=== PATIENT | male | born 1965 | race African-American/Black ===

== ENCOUNTER 2019-08-08 08:50 | Inpatient (IN) | payer MEDICARE, OTHER ==
[2019-08-08] MEDS ORDERED: Heparin 10,000 UNITS/1 ML VIAL ONE (08:52)
[2019-08-08] MEDS ORDERED: Fentanyl 100 MCG/2 ML VIAL ONE (09:13)
[2019-08-08 09:18] LABS: INR-International Normal Ratio 1.1; Prothrombin Time 13.7 sec (12.0-14.7)
[2019-08-08 09:19] LABS: PTT 72.9 sec (22.9-36.1)
[2019-08-08] MEDS ORDERED: Iopamidol 370 76% 100 ML VIAL ONE (09:32)
[2019-08-08] MEDS ORDERED: Iopamidol-370 76% 500 ML 1 ML ONE (09:40)
[2019-08-08 10:22] LABS: Troponin I 0.017 ng/mL (< 0.028)
--- NOTE | 2019-08-08 10:41 | CON ---
DATE OF CONSULTATION: 08/08/2019 REASON FOR CONSULTATION: The initial diagnosis was acute myocardial infarction with severe chest pain. The patient is found to have normal coronary arteries, taken directly to the catheterization lab. HISTORY OF PRESENT ILLNESS: Mr. Lizarraga is a 54-year-old gentleman started having severe pain last night, substernal, intense. The patient was in excruciating pain, unable to lay still. He went to the emergency room in [place], had ST elevation in the anterior chest leads. The patient was taken here to the cardiac catheterization lab on the emergency basis and cardiac catheterization revealed normal coronary arteries. Speaking more to this gentleman, it does seem to be worse when he lays down, somewhat better when he sits up, his pain has improved with fentanyl. The patient was unable to give much history initially due to the severe pain. PAST MEDICAL HISTORY: 1. History of hypertension, on lisinopril and he thinks Dyazide. 2. History of rheumatoid arthritis. MEDICATIONS: Outlined above. SOCIAL HISTORY: No alcohol or tobacco. REVIEW OF SYSTEMS: He is really unable to give adequate review of systems due to the severe pain, and unable to give much history other than it was an excruciating pain. PHYSICAL EXAMINATION: GENERAL: Initially, the patient was in severe pain, diaphoretic, unable to lay still, moving down the table. He was able to lay still after I gave him 50 mg of fentanyl. VITAL SIGNS: Blood pressure is 130 systolic, pulse in the 90s. EYES: Sclerae nonicteric. MOUTH: Mucous membranes moist. NECK: Supple. No lymphadenopathy. LUNGS: Clear anteriorly and laterally. CARDIAC: I do not hear a murmur, rub, or gallop. ABDOMEN: Soft and nontender. EXTREMITIES: Warm and dry. No clubbing or cyanosis. There is no edema. Femoral pulses present. DIAGNOSTIC IMPRESSION: EKG in [place] revealed ST elevation in the anterior chest leads. Followup EKG here did reveal more of a concave up ST elevation pattern, with also some elevation more like pericarditis on the EKG here. Cardiac catheterization revealed normal coronary arteries with normal left ventricular function. CONCLUSION: 1. Severe substernal chest pain, which appears to be more likely to be a pericarditis. 2. Long history of hypertension. 3. Normal coronary arteries. The patient has received heparin. PLAN: 1. We would go ahead and do a CT of the thoracic aorta and make sure he does dissection. 2. We have given him 30 mg of Toradol IV. 3. Start colchicine 0.6 mg twice a day. We will follow with you. He will be admitted to the Hospital service or the Family Practice service. Job ID: [id number]
--- NOTE | 2019-08-08 11:24 | CT ---
CTA OF THE CHEST AND ABDOMEN UTILIZING AN AORTIC DISSECTION PROTOCOL AND 3-D REFORMATTED IMAGING INDICATION: 54-year-old male with a history of STEMI alert and cardiac catheterization. Now with new onset chest pain. COMPARISON: None FINDINGS: Aorta: No acute aortic stenosis, occlusion or aneurysmal formation demonstrated. Central pulmonary artery: No central pulmonary embolus demonstrated. Additional thorax findings: There is small pericardial effusion. There are reticular opacities within both lower lobes. Nonspecific may reflect areas of subsegmental volume loss. No pneumothorax is evident. Additional abdominal findings: There is a 1.3 cm focus of arterial enhancement involving the lateral left hepatic lobe on image 124 series 2. Similar-appearing small foci of enhancement are seen within the peripheral aspect of segment 7 and segment 6. Findings may reflect small transient hepatic attenuation differences or tiny M hemangiomas. Arterial enhancement metastatic lesions not entirely excluded but is felt to be less likely. There is excreting contrast within the kidneys from the patient's prior cardiac catheterization. Visualized pancreas, adrenal glands and spleen appear within normal limits. No free fluid or enlarged lymph nodes are evident. Osseous structures: No acute osseous abnormality. There is scattered degenerative and osteoarthritic change present. IMPRESSION: 1. No appreciable aortic stenosis, occlusion or aneurysmal formation demonstrated. 2. Small pericardial effusion. 3. Nonspecific reticular opacities within both lower lobes are most suspicious for areas of subsegmen delroy volume loss. Atypical infection cannot be entirely excluded but is felt to be less likely. Recommend continued clinical and radiographic follow-up 4. Small foci of scattered arterial enhancement in the liver may reflect small capillary-type hemangi bob or small transient hepatic attenuation differences. As a conservative measure, would recommend a follow-up CT in 6-8 weeks utilizing hemangioma protocol to document stability or resolution.
[2019-08-08] MEDS ORDERED: Senokot S 8.6-50 MG TAB PO PRN (15:57)
[2019-08-08] MEDS ORDERED: Acetaminophen 325 MG TAB PO PRN (15:57)
[2019-08-08] MEDS ORDERED: Calcium Carbonate 500 MG ChewTAB PO PRN (15:57)
[2019-08-08] MEDS ORDERED: Bisacodyl 10 MG SUPP PR PRN (15:57)
[2019-08-08] MEDS ORDERED: Guaifenesin DM 100-10/5 ML UDCUP PO PRN (15:57)
[2019-08-08] MEDS ORDERED: HYDROcodone/Acetaminophen 5/325 mg Tablet ONE (16:11)
[2019-08-08] MEDS: HYDROcodone/Acetaminophen 5/325 mg Tablet PO PRN (16:16)
[2019-08-08] MEDS ORDERED: Colchicine 0.6 MG TAB PO SCH (17:00)
[2019-08-08 17:28] LABS: Troponin I 0.014 ng/mL (< 0.028)
--- NOTE | 2019-08-08 18:18 | HP ---
REASON FOR ADMISSION: Pericarditis. HISTORY OF PRESENTING ILLNESS: The patient gives history of having retrosternal pain with epigastric pain yesterday evening. He initially thought it was related to the food he ate. This progressively got worse this morning. On arrival at [facility], the patient was found to have had ST elevation changes. A STEMI activation was done, and the patient was brought here. He has had coronary angiogram done which has not revealed any flow-limiting disease. He has diffuse ST-T wave changes, likely from the pericarditis. Currently, he is not diaphoretic. He has no cough or expectoration. No fever. He states he is not exposed to coronavirus. No palpitations, PND, or orthopnea at present. 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 He states his father and a brother also have similar findings. There is no associated syndrome as far as he knows. Hypertension, history of rheumatoid arthritis, scoliosis. CURRENT MEDICATIONS: 1. Lisinopril 10 mg daily. 2. Hydroxychloroquine 200 mg twice daily. 3. Momence p.r.n. for pain for his rheumatoid arthritis. ALLERGIES: NO KNOWN DRUG ALLERGIES. PERSONAL HISTORY: Does not abuse alcohol or drugs. Has quit smoking more than 16 years back. FAMILY HISTORY: Father in his 90s. Mother in her 70s. The patient's has history of Tayla disease. Code status is full. Power of securities attorney is his . REVIEW OF SYSTEMS: CONSTITUTIONAL: Negative for weight loss or gain, ability to conduct usual activities. SKIN: Negative for rash, itching. EYES: Negative for double vision, pain. ENT/MOUTH: Negative for nose bleeding, neck stiffness, pain, tenderness. CARDIOVASCULAR: Negative for palpitations, dyspnea on exertion, orthopnea. RESPIRATORY: Negative for shortness of breath, wheezing, cough, hemoptysis, fever or night sweats. GASTROINTESTINAL: Negative for poor appetite, abdominal pain, heartburn, nausea, vomiting, constipation, or diarrhea. GENITOURINARY: Negative for urgency, frequency, dysuria, nocturia. MUSCULOSKELETAL: Negative for pain, swelling. NEUROLOGIC/PSYCHIATRIC: Negative for anxiety, depression. ALLERGY/IMMUNOLOGIC: Negative for skin rash, bleeding tendency. PHYSICAL EXAMINATION: GENERAL: The patient is a 54-year-old male who is currently not in any acute distress. VITAL SIGNS: Blood pressure 116/50, pulse 78 per minute, respiratory rate 20 per minute, temperature 97.7 degrees Fahrenheit, saturating 100% on room air. NECK: Supple. No elevated JVD. HEENT: Eyes; extraocular muscles intact. Pupils reacting to light. Oral cavity; mucous membranes are moist. No exudates or congestion. CARDIOVASCULAR: S1 and S2 heard. Regular rhythm. RESPIRATORY: Air entry 1+ bilateral. No rales or rhonchi. ABDOMEN: Soft. Bowel sounds heard. No tenderness, rigidity, or guarding. EXTREMITIES: No peripheral edema or calf tenderness. The patient has congenital deformities of all his fingers and toes. VASCULAR: Peripheral pulses 1+ bilateral. No ischemic ulcerations or gangrene. CENTRAL NERVOUS SYSTEM: No gross focal motor deficits noted. The patient is alert, awake, and oriented well. PSYCHIATRIC: The patient's mood is euthymic. No hallucinations or delusions. LABORATORY DATA: EKG done here shows normal sinus rhythm at 85 beats per minute. There are diffuse ST-T wave changes with elevation seen in lead 1, aVL, V2, V3. CT dissection protocol done shows no evidence of aortic stenosis or occlusion or aneurysm formation. Small pericardial effusion is seen. Nonspecific reticular opacities in both lower lobes suspicious for subsegmental volume loss. White count of 13, hemoglobin and hematocrit 15 and 49, platelet count 223 with 90% neutrophils, 1% bands, 7% lymphocytes. PT, INR, and PTT within normal limits. On arrival, BUN 10, creatinine 0.8. Troponin x4 is negative. Albumin is 4.1. LFTs are within normal limits. BNP 13. CLINICAL IMPRESSION AND PLAN: The patient will be placed under observation on telemetry for likely acute pericarditis. He has had coronary angiogram done by Dr. Kasper this morning, which did not reveal any flow-limiting disease. He has been placed on colchicine and will continue the same. We will also place him on small dose of aspirin and Lipitor along with Protonix. We will continue his home dose of Plaquenil, Momence, and lisinopril 10 mg daily. Echo with 2D Doppler for left ventricular function and wall motion will be obtained and to rule out pericardial effusion, which was not very significant on the CT dissection protocol. We will also obtain a lipid profile in the morning. COVID-19 PCR has been obtained in the ER, and we will follow up on the results. He is currently not requiring any oxygen. Job ID: [id number]
[2019-08-08 19:14] VITALS: BMI 29.9
[2019-08-08] MEDS: Morphine 2 MG/ML SYRINGE SLOW IVP PRN (19:29)
[2019-08-08] MEDS ORDERED: Atorvastatin Calcium 40 MG TAB PO SCH (21:00)
[2019-08-08] MEDS: Ketorolac Tromethamine 30 MG/ML VIAL IVP SCH (22:03)
[2019-08-08] MEDS: Hydroxychloroquine Sulfate 200 MG TAB PO SCH (22:04)
[2019-08-08] MEDS ORDERED: Temazepam 15 MG CAP PO PRN (23:25)
[2019-08-09] MEDS: Morphine 2 MG/ML SYRINGE SLOW IVP PRN (00:29)
[2019-08-09] MEDS: Ketorolac Tromethamine 30 MG/ML VIAL IVP SCH ×2 (04:22→07:46)
[2019-08-09 04:55] LABS: #Basophils 0.1 thou/uL (0.0-0.2); #Monocytes 1.7 thou/uL (0.11-0.59); #Neutrophils 10.4 thou/uL (1.40-6.50); %Basophils 0.4 % (0.0-1.0); %Eosinophils 0.3 % (0.0-10.0); %Lymphocytes 14.1 % (21.0-51.0); %Monocytes 11.9 % (0.0-10.0); %Neutrophils 73.3 % (42.0-75.0); Hemoglobin 13.6 g/dL (14.0-18.0); Mean Corpuscular HGB CONC 32.3 g/dL (32.0-36.0); Mean Corpuscular Hemoglobin 27.8 pg (27.0-31.0); Mean Corpuscular Volume 86.2 fL (78.0-98.0); Platelet Count 189 thou/uL (130-400); RBC Distribution Width 12.4 % (11.5-14.5); White Blood Cell (WBC) Count 14.2 thou/uL (4.8-10.8)
[2019-08-09 05:23] LABS: Anion Gap 13 mmol/L (10-20); BUN (Urea Nitrogen) 17 mg/dL (8.4-25.7); Calc. Creatinine Clearance 153 mL/min (70-130); Calcium 8.7 mg/dL (7.8-10.44); Carbon Dioxide 26 mmol/L (22-29); Cardiac Risk 2.6 (Less than 4.5); Chloride 98 mmol/L (98-107); Cholesterol 131 mg/dl (< 200 Desired); Estimated GFR-MDRD Greater than 90; Glucose 117 mg/dL (70-105); HDL Cholesterol 51 mg/dL (>60 Neg Risk); LDL Cholesterol, Calculated 64 mg/dL; Potassium 3.4 mmol/L (3.5-5.1); Sodium 134 mmol/L (136-145); Triglycerides 81 mg/dL (Less than 150)
[2019-08-09] MEDS: Hydroxychloroquine Sulfate 200 MG TAB PO SCH (07:46)
[2019-08-09] MEDS ORDERED: Aspirin Chewable 81 MG TAB PO SCH (09:00)
[2019-08-09] MEDS ORDERED: Enoxaparin Sodium 40 MG/0.4 ML SYRINGE SC SCH (09:00)
[2019-08-09] MEDS ORDERED: Colchicine 0.6 MG TAB PO SCH (09:00)
[2019-08-09] MEDS ORDERED: Lisinopril 10 MG TAB PO SCH (09:00)
[2019-08-09] MEDS: HYDROcodone/Acetaminophen 5/325 mg Tablet PO PRN (12:15)
[2019-08-09 12:26] LABS: SARS-CoV-2 MS2 Positive; SARS-CoV-2 N Gene Negative; SARS-CoV-2 S Gene Negative; SARS-CoV-2 orf1ab Negative
[2019-08-09] MEDS ORDERED: Potassium Chloride 20 MEQ TAB PO SCH (13:30)
[2019-08-09] MEDS ORDERED: Etodolac ER 400 mg Tablet PO SCH (14:00)
[2019-08-09 16:55] VITALS: BP 142/78; TEMP 98.5
--- NOTE | 2019-08-09 17:51 | PRG ---
DATE OF SERVICE: 08/09/2019 SUBJECTIVE: Mr. Lizarraga is feeling dramatically better. No complaints. OBJECTIVE: VITAL SIGNS: His blood pressure is 124/64, pulse 80 and it is regular. LUNGS: Clear. CARDIAC: Normal S1, normal S2. ABDOMEN: Soft and nontender. EXTREMITIES: There is no edema. IMAGING: CT scan revealed only very small pericardial effusion. ASSESSMENT: 1. Pericarditis, improved. 2. Rheumatoid arthritis. PLAN: 1. Colchicine 0.6 mg twice a day for at least three months. 2. Lodine long-acting 400 mg a day for 2 weeks. 3. Okay to me to be discharged home. We can do an outpatient echocardiogram. There is no evidence of any tamponade. There is very small effusion seen on CT scanning. Job ID: [id number]
[2019-08-09] MEDS ORDERED: Prevnar 13-Val Conj/PF 0.5 ML SYRINGE IM ONE (21:00)
== END 2019-08-09 17:49 | disposition home or self-care (01) | DRG 287 ==
LOC: ERS 08:50 → CCL 09:08 → ERS 09:08 → 2SW 09:10 → ERHOLD 13:33 → 2SW 19:10
PROVIDERS: ADMIT Internal Medicine; ATTEND Internal Medicine
PROC: 4A023N7 Measurement of Cardiac Sampling and Pressure, Left Heart, Percutaneous Approach (ICD-10-PCS; principal; 2019-08-08)
PROC: B2151ZZ Fluoroscopy of Left Heart using Low Osmolar Contrast (ICD-10-PCS; 2019-08-08)
PROC: B2111ZZ Fluoroscopy of Multiple Coronary Arteries using Low Osmolar Contrast (ICD-10-PCS; 2019-08-08)
DX: I30.9 Acute pericarditis, unspecified (principal); Z20.828 Contact with and (suspected) exposure to other viral communicable diseases; I25.10 Atherosclerotic heart disease of native coronary artery without angina pectoris; I10 Essential (primary) hypertension; M06.9 Rheumatoid arthritis, unspecified; M41.9 Scoliosis, unspecified; Z87.891 Personal history of nicotine dependence; Z79.899 Other long term (current) drug therapy
CPT/HCPCS: 36415; 71275; 72191; 74175; 76942; 80048; 80061; 85025; 85347; 86850; 86900; 86901; 87635; 93005; 93306; 93458; 94760; J1644; J1650; J1885; J2270; J3010; Q9967; U0003

== ENCOUNTER 2019-08-18 00:10 | Inpatient (IN) | payer MEDICARE ==
[2019-08-18 01:51] LABS: Troponin I 0.022 ng/mL (< 0.028)
[2019-08-18] MEDS ORDERED: Morphine 2 MG/ML SYRINGE ONE (03:11)
[2019-08-18] MEDS ORDERED: Diltiazem HCl 125 MG, Admixture Fee 1 EACH in Sodium Chloride 0.9% 100 ML IVPB SCH (05:00)
[2019-08-18] MEDS ORDERED: Lorazepam 1 MG TAB ONE (05:20)
[2019-08-18] MEDS ORDERED: Ondansetron PF 4 MG/2 ML Vial ONE (08:06)
[2019-08-18] MEDS ORDERED: Ondansetron PF 4 MG/2 ML Vial IVP SCH (08:15)
[2019-08-18] MEDS ORDERED: Nitroglycerin 0.4 MG TAB (25 Tab Bottle) PO PRN (10:35)
[2019-08-18] MEDS ORDERED: Temazepam 15 MG CAP PO PRN (10:44)
[2019-08-18] MEDS ORDERED: Metoprolol Tartrate 25 MG TAB PO SCH ×2 (10:45→21:00)
[2019-08-18 10:55] VITALS: BMI 31.4
[2019-08-18] MEDS ORDERED: Enoxaparin Sodium 30 MG/0.3 ML SYRINGE SC SCH (11:00)
[2019-08-18] MEDS ORDERED: Enoxaparin Sodium 100 MG/ML SYRINGE SC SCH (11:00)
[2019-08-18] MEDS ORDERED: Potassium Chloride 20 MEQ TAB ONE (11:16)
[2019-08-18] MEDS ORDERED: Enoxaparin Sodium 30 MG/0.3 ML SYRINGE ONE (11:16)
[2019-08-18] MEDS ORDERED: Enoxaparin Sodium 100 MG/ML SYRINGE ONE (11:16)
[2019-08-18] MEDS ORDERED: Metoprolol Tartrate 25 MG TAB ONE (11:16)
[2019-08-18] MEDS ORDERED: HYDROcodone/Acetaminophen 10/325 mg Tablet ONE (11:16)
[2019-08-18] MEDS: Potassium Chloride 20 MEQ TAB PO SCH ×2 (11:24→17:26)
[2019-08-18] MEDS: HYDROcodone/Acetaminophen 10/325 mg Tablet PO PRN (11:24)
[2019-08-18 11:35] LABS: INR-International Normal Ratio 1.2; PTT 30.1 sec (22.9-36.1); Prothrombin Time 15.5 sec (12.0-14.7)
[2019-08-18 11:59] LABS: Anion Gap 14 mmol/L (10-20); BUN (Urea Nitrogen) 18 mg/dL (8.4-25.7); Calc. Creatinine Clearance 135 mL/min (70-130); Calcium 7.9 mg/dL (7.8-10.44); Carbon Dioxide 25 mmol/L (22-29); Chloride 92 mmol/L (98-107); Estimated GFR-MDRD 79; Glucose 166 mg/dL (70-105); Magnesium 2.3 mg/dL (1.6-2.6); Potassium 3.6 mmol/L (3.5-5.1); Sodium 127 mmol/L (136-145)
--- NOTE | 2019-08-18 16:17 | PDOC.HHP ---
Hospitalist HPI - History of Present Illness Heart racing History of Present Illness: Recent admission for CP with EKG changes. Negative cath. Dx'd with pericarditis. Started on Colchicine and discharged. on 08/10. His chest pain resolved. On 08/15 he started having problems with some nausea and vomiting. When rushing to get to the BR he noted tachycardia. He was unable to walk more than 20 feet without having BAJWA. After the third episode of the heart racing he came to the ED. Denies abdominal pain. ED Course: Noted to be in afib with RVR in the ED. Started on Cardizem gtt. Better rate control, but still in fib. Anticoagulation given. Hospitalist ROS - Review of Systems Constitutional: denies: fever, chills Cardiovascular: reports: palpitations. denies: chest pain Gastrointestinal: reports: nausea, vomiting, abdominal pain. denies: diarrhea, constipation All other systems reviewed; all pertinent +/- noted in HPI/Subj - Medication Medications: Active Medications Generic Name Dose Route Start Last Admin Trade Name Freq PRN Reason Stop Dose Admin Hydrocodone Bitart/Acetaminophen 1 tab 08/18/19 10:35 08/18/19 11:24 [place] 10/325 PO 1 tab Q6H PRN Administration Mild-Moderate Pain (1-5) Potassium Chloride 20 meq 08/18/19 12:00 08/18/19 11:24 K-Dur PO 20 meq TID-WM [facility] Administration Plaquenil 200 mg po bid Colchicine 0.6 mg po bid Diazide 37.5-25 po qday Lisinopril 10 mg po q day Temazepam 15 mg po q day [place] prn Vitamin D3 Hospitalist History - Past Medical History Cardiac: reports: HTN, Other (Pericarditis) Musculoskeletal: reports: Other (scoliosis) Rheumatologic: reports: Rheumatoid arthritis - Past Surgical History Past Surgical History: reports: no pertinent history - Family History Family History: reports: no pertinent history - Social History Smoking Status: Former smoker Alcohol: reports: None Drugs: reports: none Living Situation: With Family Other Social History: Full code. would be his surrogate if needed. - Exam General Appearance: NAD, awake alert Neck: supple, symmetric, no JVD, no thyromegaly, no lymphadenopathy, no carotid bruit Heart: no murmur, no gallops, no rubs, irregular Respiratory: CTAB, no wheezes, no rales, no ronchi, normal chest expansion, no tachypnea, normal percussion Gastrointestinal: soft, non-tender, non-distended, normal bowel sounds, no palpable masses, no hepatomegaly, no splenomegaly, no bruit Extremities: no cyanosis, no clubbing, no edema Skin: normal turgor, no lesions, no rashes Neurological: no focal deficits Musculoskeletal: normal tone, normal strength, no muscle wasting Musculoskeletal - other findings: RA changes in fingers Psychiatric: normal affect, normal behavior, A&O x 3 Hospitalist Results - Labs Result Diagrams: 08/18/19 10:57 Lab results: Sodium 127 mmol/L (136-145) L 08/18/19 10:57 Potassium 3.6 mmol/L (3.5-5.1) 08/18/19 10:57 Chloride 92 mmol/L (98-107) L 08/18/19 10:57 Carbon Dioxide 25 mmol/L (22-29) 08/18/19 10:57 BUN 18 mg/dL (8.4-25.7) 08/18/19 10:57 Creatinine 1.16 mg/dL (0.7-1.3) 08/18/19 10:57 Glucose 166 mg/dL (70-105) H 08/18/19 10:57 Calcium 7.9 mg/dL (7.8-10.44) 08/18/19 10:57 Troponin I 0.030 ng/mL (< 0.028) H 08/18/19 04:30 - EKG Interpretation EKG: Afib with RVR Hospitalist H&P A/P - Problem (1) Atrial fibrillation with rapid ventricular response Code(s): I48.91 - UNSPECIFIED ATRIAL FIBRILLATION Status: Acute (2) Hyponatremia Code(s): E87.1 - HYPO-OSMOLALITY AND HYPONATREMIA Status: Acute (3) Pericarditis Code(s): I31.9 - DISEASE OF PERICARDIUM, UNSPECIFIED Status: Acute (4) Nausea & vomiting Code(s): R11.2 - NAUSEA WITH VOMITING, UNSPECIFIED Status: Acute (5) HTN (hypertension) Code(s): I10 - ESSENTIAL (PRIMARY) HYPERTENSION Status: Acute - Plan Plan: Atrial Fibrillation with RVR: New onset. Recent echo. Cardizem gtt with good rate control. Lovenox until Cards decides on cardioversion plan. Hyponatremia: Likely due to N/V. IVF. Recheck in am. N/V: Likely side-effect of recently added colchicine. Hold for now. Discussed with Dr. Kasper. He will likely reduce the dose. Pericarditis: Recent CP with negative cath, but with EKG changes. Treated with colchicne, but causing some GI SE's. RA: Continue home meds. HTN: Continue Lisinopril. Hold Dyazide due to hyponatremia.
[2019-08-18] MEDS: Sodium Chloride 0.9% 1,000 ML IV SCH (17:26)
[2019-08-18] MEDS: Ketorolac Tromethamine 30 MG/ML VIAL IVP SCH (17:27)
[2019-08-18 18:21] LABS: Anion Gap 14 mmol/L (10-20); BUN (Urea Nitrogen) 20 mg/dL (8.4-25.7); Calc. Creatinine Clearance 131 mL/min (70-130); Calcium 7.9 mg/dL (7.8-10.44); Carbon Dioxide 25 mmol/L (22-29); Chloride 92 mmol/L (98-107); Estimated GFR-MDRD 76; Glucose 140 mg/dL (70-105); Sodium 127 mmol/L (136-145)
[2019-08-18 19:11] LABS: Bacteria/HPF None Seen HPF (None Seen); Bilirubin Negative (Negative); Blood, Urine Negative (Negative); Clarity Clear (Clear); Glucose, Urine (Dipstick) Normal (Negative); Ketone, Urine Negative (Negative); Leukocyte Negative Leu/uL (Negative); Nitrite Negative (Negative); Protein, Urine (Dipstick) 30 mg/dL (Neg-Trace); RBC/HPF 0-3 HPF (0-3); Specific Gravity, Urine 1.019 (1.002-1.036); Squamous Epithelial None Seen HPF (0-3); Urobilinogen 3 mg/dL (Less than 2); WBC/HPF 0-3 HPF (0-3)
[2019-08-18 19:13] LABS: Urine Culture Reflex No No
[2019-08-18] MEDS: Enoxaparin Sodium 30 MG/0.3 ML SYRINGE SC SCH ×2 (20:14→20:27)
[2019-08-18] MEDS: Enoxaparin Sodium 100 MG/ML SYRINGE SC SCH ×2 (20:14→20:28)
[2019-08-18] MEDS: Metoprolol Tartrate 25 MG TAB PO SCH (20:16)
[2019-08-18] MEDS: HYDROcodone/Acetaminophen 10/325 mg Tablet PO SCH (20:16)
[2019-08-18] MEDS: Hydroxychloroquine Sulfate 200 MG TAB PO SCH (20:17)
[2019-08-18] MEDS ORDERED: Enoxaparin Sodium 120 MG/0.8 ML SYRINGE SC SCH (21:00)
--- NOTE | 2019-08-18 22:09 | CON ---
DATE OF CONSULTATION: 08/18/2019 REASON FOR CONSULTATION: Atrial fibrillation with a rapid rate, recent pericarditis. HISTORY OF PRESENT ILLNESS: Mr. Lizarraga is a 54-year-old gentleman, who came to the hospital recently with severe chest pain. He was initially classified as a possible acute myocardial infarction. He was taken to cardiac catheterization lab, where he was found to have normal coronary arteries, but he did have a diagnosis of pericarditis. He was found to have a small hemodynamically insignificant pericardial effusion. He went home on colchicine, but he had a lot of gastrointestinal problems, did want to eat, felt nauseated, did not vomit. In the last few days, he just has not been feeling well, finally came to the emergency room. He has been atrial fibrillation with a rapid rate. PAST MEDICAL HISTORY: He has a history of rheumatoid arthritis. MEDICATIONS: He is on hydroxychloroquine medicines, please see the nurse's notes included colchicine and hydroxychloroquine and given potassium here and started on beta blockers. SOCIAL HISTORY: No alcohol or tobacco. REVIEW OF SYSTEMS: As outlined above. VISION: No changes. HEARING: No changes. PULMONARY: No cough or wheezing. CARDIAC: No chest pain, usually but he has some pains in various locations in his chest, but he says it is hard to tell from his usual arthritis pain. GASTROINTESTINAL: As outlined above. SKIN: No rashes. NEUROLOGIC: No unilateral weakness or numbness. PSYCHIATRIC: No unusual depression or anxiety. HEMATOLOGIC: No unusual bruising. GENITOURINARY: No burning with urination. PHYSICAL EXAMINATION: GENERAL: This is a pleasant gentleman, very tall. VITAL SIGNS: 6 feet 8 inches tall and 290 pounds. HEENT: Eyes, sclerae nonicteric. Mouth, mucous membranes moist. NECK: Supple. No lymphadenopathy. LUNGS: Clear. No wheezing. CARDIAC: Normal S1 and normal S2. There is no murmur, rub, or gallop. It is irregularly irregular; however. ABDOMEN: Soft and nontender. EXTREMITIES: Warm and dry. No clubbing. No cyanosis or edema. PERTINENT LABORATORY DATA: Troponin 0.030. Sodium is 127. The patient was on triamterene. EKG reveals atrial fibrillation with a rapid rate. Still has some ST elevation in V3 and V4, probably due to pericarditis. ASSESSMENT: 1. Recent pericarditis. 2. Atrial fibrillation with a rapid rate. 3. Gastrointestinal side effects on colchicine. PLAN: 1. Hold colchicine. 2. Change to intravenous anti-inflammatories for now. 3. Increase beta blockers. 4. We will add flecainide tomorrow if he is still in fibrillation. Job ID: [id number]
[2019-08-19] MEDS: Ketorolac Tromethamine 30 MG/ML VIAL IVP SCH ×2 (00:08→05:51)
[2019-08-19] MEDS: Temazepam 15 MG CAP PO PRN (00:11)
[2019-08-19 04:39] LABS: Anion Gap 12 mmol/L (10-20); BUN (Urea Nitrogen) 28 mg/dL (8.4-25.7); Calc. Creatinine Clearance 108 mL/min (70-130); Calcium 7.4 mg/dL (7.8-10.44); Carbon Dioxide 23 mmol/L (22-29); Chloride 92 mmol/L (98-107); Estimated GFR-MDRD 61; Glucose 121 mg/dL (70-105); Potassium 4.3 mmol/L (3.5-5.1); Sodium 123 mmol/L (136-145)
[2019-08-19] MEDS: Sodium Chloride 0.9% 1,000 ML IV SCH (05:52)
--- NOTE | 2019-08-19 07:35 | PDOC.HOSPP ---
- Subjective Encounter Date: 08/19/19 Encounter Time: 14:00 Subjective: Patient seen and examined for Afib with RVR. Cardizem drip dced last night. No CP. No new complaints. No overnight events - Objective Vital Signs & Weight: Vital Signs (12 hours) Temp Pulse Resp BP Pulse Ox 08/19/19 07:17 98.1 F 18 113/70 99 08/19/19 03:55 79 114/66 08/19/19 03:25 97.7 F 55 L 18 103/66 95 08/18/19 23:00 107/54 L Weight Weight 293 lb 3.2 oz I&O: 08/18/19 08/19/19 08/20/19 06:59 06:59 06:59 Intake Total 1100 Balance 1100 Result Diagrams: 08/19/19 14:07 EKG Reviewed by me: Yes (Tele Afib) Hospitalist ROS - Review of Systems Respiratory: denies: cough, dry, shortness of breath, hemoptysis, SOB with excertion, pleuritic pain, sputum, wheezing, other Cardiovascular: denies: chest pain, palpitations, orthopnea, paroxysmal noc. dyspnea, edema, light headedness, other - Medication Medications: Active Medications Generic Name Dose Route Start Last Admin Trade Name Freq PRN Reason Stop Dose Admin Hydrocodone Bitart/Acetaminophen 1 tab 08/18/19 10:35 08/18/19 11:24 [place] 10/325 PO 1 tab Q6H PRN Administration Mild-Moderate Pain (1-5) Hydrocodone Bitart/Acetaminophen 1 tab 08/18/19 21:00 08/18/19 20:16 [place] 10/325 PO 1 tab BID [facility] Administration Enoxaparin Sodium 100 mg 08/18/19 21:00 08/18/19 20:28 Lovenox SC 100 mg 0900,2100 [facility] Administration Enoxaparin Sodium 30 mg 08/18/19 21:00 08/18/19 20:27 Lovenox SC 30 mg 0900,2100 [facility] Administration Hydroxychloroquine Sulfate 200 mg 08/18/19 21:00 08/18/19 20:17 Plaquenil PO 200 mg BID [facility] Administration Ketorolac Tromethamine 30 mg 08/18/19 18:00 08/19/19 05:51 Toradol IVP 07/14/20 18:01 30 mg Q6HR [facility] Administration Metoprolol Tartrate 50 mg 08/18/19 21:00 08/18/19 20:16 Lopressor PO 50 mg BID [facility] Administration Temazepam 15 mg 08/18/19 10:44 08/19/19 00:08 Restoril PO 15 mg HS PRN Administration Insomnia Temazepam 15 mg 08/18/19 16:14 08/19/19 00:11 Restoril PO 15 mg HS PRN Administration Insomnia - Exam General Appearance: NAD Neck: supple, no JVD Heart: no gallops, irregular Respiratory: no wheezes, no ronchi Gastrointestinal: soft, non-tender, normal bowel sounds Extremities: no cyanosis Hosp A/P - Plan DVT proph w/lovenox, DVT proph w/SCDs Atrial Fibrillation with RVR -off Cardizem drip -on full dose Lovenox Hyponatremia Hyponatremia with PAULA on CKD 2 -prob due to SIADH with dehydration N/V -Prob due to Colchicine - on hold Recent Acute Pericarditis -unable to tolerate Colchicine RA HTN Obesity BMI 31.4 PLAN: Hold Lisinopri/HCTZ Add fluid rest DC IVF Hold Toradol due to PAULA. Recheck BMP later today AM labs
[2019-08-19] MEDS: Metoprolol Tartrate 25 MG TAB PO SCH (08:23)
[2019-08-19] MEDS: Enoxaparin Sodium 30 MG/0.3 ML SYRINGE SC SCH ×2 (08:23→20:40)
[2019-08-19] MEDS: HYDROcodone/Acetaminophen 10/325 mg Tablet PO SCH ×2 (08:23→20:40)
[2019-08-19] MEDS: Enoxaparin Sodium 100 MG/ML SYRINGE SC SCH ×2 (08:23→20:40)
[2019-08-19] MEDS: Hydroxychloroquine Sulfate 200 MG TAB PO SCH ×2 (08:30→20:39)
[2019-08-19] MEDS ORDERED: Lisinopril 10 MG TAB PO SCH (09:00)
--- NOTE | 2019-08-19 12:18 | CON ---
DATE OF CONSULTATION: 08/19/2019 SERVICE: Nephrology. REASON FOR CONSULTATION: Acute kidney injury and hyponatremia. REQUESTING PHYSICIAN: Dr. Kenneth Cox. HISTORY OF PRESENT ILLNESS: A 54-year-old male patient with known history of rheumatoid arthritis, who was recently discharged from this hospital after diagnosis and treatment of pericarditis, was readmitted on August 18, 2019 due to worsening chest pain as well as shortness of breath and tachyarrhythmia. The patient had presented to [facility] due to tachyarrhythmia, worsening chest pain and shortness of breath, and was found to be in atrial fibrillation with rapid ventricular response. He was treated with Cardizem IV push, which resulted in hypotension and was subsequently resuscitated with 2 L of normal saline. He was subsequently also started on Cardizem infusion. On presentation to the [place] [facility], the patient was found to have elevated creatinine of 1.57, which is relatively higher than recent baseline of 0.8 to 1.0. With IV resuscitation, renal function improved to a creatinine of 1.16. Due to pericarditis and chest pain as well as nausea and poor oral intake, which was felt to be due to GI adverse reaction to colchicine. The patient was started on ketorolac with first dose being last night and second dose earlier this morning. On evaluation today, the patient was found to have acute elevation in creatinine of 1.4. Note also that the patient with a normal plasma sodium on recent hospitalization, was noted to have sodium of 129 on August 16. This trended further down to 123 this morning. Of note, the patient was evaluated yesterday with urine and plasma osmolality, which are suggestive of SIADH. The patient reported that appetite is better today and he is able to keep food down. He, however, reported persistent nausea and vomiting since commencement of colchicine. Chest pain has improved. The patient denied fever or edema. PAST MEDICAL HISTORY: 1. Hypertension. 2. Scoliosis. 3. Rheumatoid arthritis. PAST SURGICAL HISTORY: Recent cardiac angiogram. FAMILY HISTORY: Significant for hypertension and diabetes in both parents. SOCIAL HISTORY: The patient lives with family. He is a former smoker. Denied alcohol or recreational drug use. ALLERGIES: NO KNOWN DRUG ALLERGIES REPORTED. PRIOR TO HOSPITAL MEDICATIONS: 1. Vitamin D 50,000 units every 7 days. 2. Hydrocodone/acetaminophen 10/325 one tablet p.o. b.i.d. p.r.n. 3. Hydroxychloroquine 200 mg p.o. b.i.d. 4. Lisinopril 10 mg p.o. daily. 5. Temazepam 15 mg p.o. daily at bedtime p.r.n. for insomnia. 6. Triamterene/hydrochlorothiazide one tablet p.o. b.i.d. 7. Colchicine 0.6 mg p.o. b.i.d. REVIEW OF SYSTEMS: A 12-point review of system performed was negative other than pertinent positives and negatives included in the history of present illness. PHYSICAL EXAMINATION: VITAL SIGNS: Temperature 98.1, pulse 99, respiratory rate 18, SpO2 of 99% on room air, and blood pressure is 113/70. I and O in the last 24 hours showed total intake of 1100. Output was not measured. GENERAL: Comfortable male patient, in no obvious distress. Afebrile. Anicteric. Acyanotic. HEENT: Normocephalic and atraumatic. Oral mucosa is moist. NECK: Supple with no JVD. CARDIOVASCULAR: Irregular rhythm and rate with mild tachycardia. No obvious murmur appreciated. RESPIRATORY: Fair air entry bilaterally with no obvious crackle or rhonchi or use of accessory muscles. GI: Full, soft, nontender, and nondistended with normal bowel sounds. MUSCULOSKELETAL: Extremities, mild scoliosis noted. Deformity of the hands including trigger and deviations with some fixed flexion deformities noted. Otherwise, no edema or erythema. CLINICAL PHARMACY COORDINATOR: Conscious, alert, and oriented x3 with appropriate mental status. Cranial nerves 2 through 12 are grossly intact. DIAGNOSTIC DATA: BMP today showed sodium 123, potassium 4.3, chloride 92, CO2 of 23, BUN 28, creatinine 1.46, glucose 121, and calcium 7.4. Note that the patient had normal plasma sodium recently. Serum osmolality on August 17 was 273 while urine osmolality was 517. ASSESSMENT: 1. Hyponatremia: The patient looked clinically euvolemic. Elevated urine osmolality in the face of hypo-osmolality is consistent with syndrome of inappropriate antidiuretic hormone secretion. The patient also was on thiazide diuretic prior to hospitalization and also reported intractable nausea and some dry heaving since starting colchicine. Also, sodium level drops acutely with normal saline therapy suggestive of syndrome of inappropriate antidiuretic hormone secretion. 2. Presumed syndrome of inappropriate antidiuretic hormone secretion. 3. Acute kidney injury: The patient had normal creatinine ranging from 0.8 to 1.0 even on recent hospitalization. He reported taking Aleve on August 16 prior to presentation to the ED, where he was found to have creatinine of 1.57. Creatinine did trend down yesterday to 1.2, but was starting to go up since commencement of ketorolac. Acute kidney injury is due to hemodynamic factors related to NSAID use. The patient also was on thiazide diuretic as well as lisinopril. 4. Hypertension: Blood pressure currently is well controlled if not soft. 5. Atrial fibrillation with rapid ventricular response. 6. Exertional dyspnea. PLAN: 1. We will discontinue ketorolac for now. 2. We will also get urine electrolytes as well as repeat urinalysis. 3. We will start fluid restriction at 1200 per 24 hours. 4. We will avoid hypertonic solution and then isotonic solution as this will worsen plasma sodium level. 5. We will start the patient on salt tablets to improve sodium levels. 6. Further treatment to follow depending on hospital course. Many thanks for involving us in the care of this patient. We will follow along with you. Job ID: [id number]
[2019-08-19 12:19] LABS: Bacteria/HPF None Seen HPF (None Seen); Bilirubin Negative (Negative); Blood, Urine Negative (Negative); Clarity Clear (Clear); Glucose, Urine (Dipstick) Normal (Negative); Ketone, Urine Negative (Negative); Leukocyte Negative Leu/uL (Negative); Nitrite Negative (Negative); Protein, Urine (Dipstick) 30 mg/dL (Neg-Trace); RBC/HPF 0-3 HPF (0-3); Squamous Epithelial 0-3 HPF (0-3); Urobilinogen 3 mg/dL (Less than 2)
[2019-08-19 12:20] LABS: Urine Culture Reflex Yes Yes
[2019-08-19 12:28] LABS: Creatinine, Urine 219.85 mg/dL (63-166); Protein, Urine Random Quant 37 mg/dL (1-14); Sodium, Urine Less than 20 mmol/L (Not Available); Urea Nitrogen, Random Urine 1018 mg/dl
[2019-08-19 14:27] LABS: Anion Gap 18 mmol/L (10-20); BUN (Urea Nitrogen) 31 mg/dL (8.4-25.7); Calc. Creatinine Clearance 126 mL/min (70-130); Calcium 7.7 mg/dL (7.8-10.44); Carbon Dioxide 15 mmol/L (22-29); Chloride 96 mmol/L (98-107); Estimated GFR-MDRD 73; Glucose 123 mg/dL (70-105); Potassium 4.9 mmol/L (3.5-5.1); Sodium 124 mmol/L (136-145)
[2019-08-19] MEDS: Sodium Chloride 1 GM TAB PO SCH ×2 (14:32→20:48)
--- NOTE | 2019-08-19 15:12 | PRG ---
DATE OF SERVICE: 08/19/2019 SUBJECTIVE: Mr. Lizarraga has abdominal fullness, does not feel well and the heart racing. The patient's renal function worsened with Toradol. Also continues to be hyponatremic. Creatinine steered now then to the near baseline at 1.25, although looking back it was as high as 1.57 on the , as low as 0.98 last end july. The patient has atrial fibrillation with rapid rate. OBJECTIVE: LUNGS: Clear. CARDIAC: Tachycardic and irregular. ABDOMEN: Obese and nontender. EXTREMITIES: No edema. ASSESSMENT: 1. Recent episode of pericarditis, looks like there is probably still some pericarditis present based on the EKG. 2. Worsening renal failure with Toradol. 3. Likely some element of diastolic heart failure with increased BNP. PLAN: 1. Continue beta blockers. We have changed to long-acting. 2. Cardizem has been added. 3. He is on anticoagulants. 4. If he is still in atrial fibrillation, on Thursday, recommend transesophageal echo and cardioversion. We will go ahead and tentatively schedule that for Thursday morning. If he converts to sinus rhythm that could be canceled. Job ID: [id number]
[2019-08-19] MEDS ORDERED: Sodium Bicarbonate Tab 325 MG TAB PO SCH (18:00)
[2019-08-19] MEDS: Sodium Bicarbonate Tab 325 MG TAB PO SCH (20:40)
[2019-08-20 05:08] LABS: #Lymphocytes 1.9 thou/uL (1.20-3.40); #Neutrophils 9.6 thou/uL (1.40-6.50); %Basophils 0.2 % (0.0-1.0); %Eosinophils 0.2 % (0.0-10.0); %Lymphocytes 14.8 % (21.0-51.0); %Neutrophils 76.8 % (42.0-75.0); Hemoglobin 11.6 g/dL (14.0-18.0); Mean Corpuscular HGB CONC 31.4 g/dL (32.0-36.0); Mean Corpuscular Hemoglobin 26.2 pg (27.0-31.0); Mean Corpuscular Volume 83.4 fL (78.0-98.0); Mean Platelet Volume 7.4 fL (7.4-10.4); Platelet Count 294 thou/uL (130-400); Red Blood Cell (RBC) Count 4.41 mill/uL (4.70-6.10); White Blood Cell (WBC) Count 12.5 thou/uL (4.8-10.8)
[2019-08-20 05:30] LABS: Anion Gap 13 mmol/L (10-20); BUN (Urea Nitrogen) 20 mg/dL (8.4-25.7); Calc. Creatinine Clearance 167 mL/min (70-130); Calcium 7.7 mg/dL (7.8-10.44); Carbon Dioxide 23 mmol/L (22-29); Chloride 98 mmol/L (98-107); Estimated GFR-MDRD Greater than 90; Glucose 130 mg/dL (70-105); Sodium 130 mmol/L (136-145)
[2019-08-20] MEDS: Enoxaparin Sodium 30 MG/0.3 ML SYRINGE SC SCH ×2 (08:04→21:20)
[2019-08-20] MEDS: Enoxaparin Sodium 100 MG/ML SYRINGE SC SCH ×2 (08:04→21:19)
[2019-08-20] MEDS: Sodium Chloride 1 GM TAB PO SCH ×3 (08:04→21:19)
[2019-08-20] MEDS: Hydroxychloroquine Sulfate 200 MG TAB PO SCH ×2 (08:05→21:19)
[2019-08-20] MEDS: HYDROcodone/Acetaminophen 10/325 mg Tablet PO SCH ×2 (08:05→21:19)
[2019-08-20] MEDS: Sodium Bicarbonate Tab 325 MG TAB PO SCH ×3 (08:05→21:19)
[2019-08-20] MEDS: Colchicine 0.3 MG TAB PO SCH ×2 (08:55→21:24)
--- NOTE | 2019-08-20 13:01 | PDOC.CPN ---
- Subjective Date: 08/20/19 Time: 13:07 Interval history: The pt seen and examined. No overnight events. No cardiac complaints, except mild SOB. - Objective Allergies/Adverse Reactions: Allergies Allergy/AdvReac Type Severity Reaction Status Date / Time No Known Allergies Allergy Verified 08/08/19 19:29 Visit Medications: Current Medications Hydrocodone Bitart/Acetaminophen ([place] 10/325) 1 tab PO Q6H PRN PRN Reason: Mild-Moderate Pain (1-5) Last Admin: 08/18/19 11:24 Dose: 1 tab Hydrocodone Bitart/Acetaminophen ([place] 10/325) 1 tab PO BID [facility] Last Admin: 08/20/19 08:05 Dose: 1 tab Bisacodyl (Dulcolax) 10 mg PO DAILYPRN PRN PRN Reason: Constipation Colchicine (Colcrys) 0.3 mg PO BID [facility] Last Admin: 08/20/19 08:55 Dose: 0.3 mg Diltiazem HCl (Cardizem) 30 mg PO Q6H PRN PRN Reason: HR >120 sustained Last Admin: 08/19/19 14:31 Dose: 30 mg Diltiazem HCl (Cardizem) 30 mg PO ACHS [facility] Last Admin: 08/20/19 11:53 Dose: 30 mg Enoxaparin Sodium (Lovenox) 100 mg SC 0900,2100 [facility] Last Admin: 08/20/19 08:04 Dose: 100 mg Enoxaparin Sodium (Lovenox) 30 mg SC 0900,2100 [facility] Last Admin: 08/20/19 08:04 Dose: 30 mg Hydroxychloroquine Sulfate (Plaquenil) 200 mg PO BID [facility] Last Admin: 08/20/19 08:05 Dose: 200 mg Metoprolol Succinate (Toprol Xl) 100 mg PO DAILY [facility] Last Admin: 08/20/19 08:06 Dose: 100 mg Nitroglycerin (Nitrostat) 0.4 mg PO Q5MIN PRN PRN Reason: Chest Pain Sodium Bicarbonate (Bicarbonate, Sodium) 650 mg PO TID [facility] Last Admin: 08/20/19 08:05 Dose: 650 mg Sodium Chloride (Flush - Normal Saline) 10 ml IVF PRN PRN PRN Reason: Saline Flush Last Admin: 08/19/19 20:44 Dose: 10 ml Sodium Chloride (Sodium Chloride) 1 gm PO TID [facility] Last Admin: 08/20/19 08:04 Dose: 1 gm Temazepam (Restoril) 15 mg PO HS PRN PRN Reason: Insomnia Last Admin: 08/19/19 00:11 Dose: 15 mg Vital Signs & Weight: Vital Signs Temp Pulse Resp BP Pulse Ox 08/20/19 11:42 97.6 F 98 18 94/64 98 08/20/19 07:05 98.1 F 140 H 20 109/57 L 99 08/20/19 04:00 131 H 18 137/72 96 Admit Weight 293 lb 3.2 oz Weight 293 lb 3.2 oz - Physical Exam General: alert & oriented x3 Neck: supple neck Cardiac: irregularly regular, S1/S2 Extremities: no edema - Labs Result Diagrams: 08/20/19 04:50 08/20/19 04:50 Troponin/CKMB Troponin I 0.030 ng/mL (< 0.028) H 08/18/19 04:30 - Telemetry Supraventricular conduction: atrial fibrillation - Assessment/Plan Assessment/Plan: 1. AFib with RVR - his HR elevated with movement; on Diltizam 30mg QID, Lovenox BID, Toprol 100mg qd; Plan for DOROTHY/DCCV on Thursday if he cont. afib 2. pericarditis 3. Hyponatremia with PAULA on CKD 2 - on fluid restriction 1200ml/day 4. N/V Prob due to Colchicine - on hold MAR reviewed * cath on 08/11/2019 with normal coronary arteries * Echo on 08/11/2019 with EF 55-60%, mild-mod LVH, small concentric pericardial effusion * Dr Kasper's pt Pt. seen and eval. by me. I agree with the A/P by the COUNTING MACHINE OPERATOR.Chest clear. Plan for DOROTHY/cardioversion on Thursday.gjdave
--- NOTE | 2019-08-20 13:12 | PRG ---
DATE OF SERVICE: 08/20/2019 SERVICE: Nephrology. SUBJECTIVE: A 54-year-old male seen in followup for acute kidney injury and hyponatremia. The patient was admitted due to tachyarrhythmia and found to have atrial fibrillation with rapid ventricular response. Reports feeling better. Still getting palpitations with exertion. Oral intake is improving. Denied fever or leg swelling. OBJECTIVE: VITAL SIGNS: Temperature 98.1, pulse 140, respiratory rate 20, SpO2 of 99% on room air, blood pressure is 109/57. I's and O's in the last 24 hours showed total intake of 1825 with total output of 3300. GENERAL: Male patient, in no obvious distress. Afebrile. Anicteric. Acyanotic. HEENT: Normocephalic, atraumatic. Oral mucosa is moist. CARDIOVASCULAR: Irregular rhythm and rate. Tachycardic. Normal heart sounds 1 and 2. RESPIRATORY: Good air entry bilaterally with no obvious crackle or rhonchi or use of accessory muscles. GI: Full, soft, nontender, nondistended with normal bowel sounds. MUSCULOSKELETAL: Extremities are grossly normal without edema except fixed flexion deformities of both hands/digits due to rheumatoid arthritis. MANAGER PURCHASING: Conscious, alert, oriented x3 with appropriate mental status. Cranial nerves 2 through 12 are grossly intact. DIAGNOSTIC DATA: CBC today showed WBC count of 12.5, hemoglobin of 11.6, MCV of 83.4, platelets of 294. Chemistry showed sodium 130, potassium 4.0, chloride 98, CO2 of 23, BUN 20, creatinine 0.94, glucose 130, calcium 7.7. Urine electrolytes yesterday showed random protein of 37 with creatinine of 219.85 and sodium of less than 20. Urine urea nitrogen is 1018. ASSESSMENT: 1. Acute kidney injury: Due to hemodynamic factors. Resolved. 2. Hyponatremia: Intractable nausea leading to ADH secretion superimposed on SIADH as well as increased free water intake. Sodium is up to 130 with salt tablets and fluid restriction. The patient also is off thiazide diuretic at this time. 3. SIADH: The patient has been on thiazide diuretics prior to presentation. 4. Hypertension: Controlled. Blood pressure is actually on the soft side, most likely due to tachyarrhythmia. 5. Paroxysmal/new onset atrial fibrillation with rapid ventricular response. 6. Rheumatoid arthritis with hand deformities. PLAN: 1. We will continue fluid restriction and salt tablets. 2. We will also continue alkali therapy for metabolic acidosis. 3. We will continue to avoid nephrotoxic agents. 4. We will recheck renal function and electrolytes in the morning. Other treatment as per other specialties and primary attending. Job ID: [id number]
[2019-08-20] MEDS: HYDROcodone/Acetaminophen 10/325 mg Tablet PO PRN (15:42)
[2019-08-20] MEDS: Bisacodyl 5 MG TAB PO PRN (15:43)
--- NOTE | 2019-08-20 19:17 | PDOC.HOSPP ---
- Subjective Encounter Date: 08/20/19 Encounter Time: 07:20 Subjective: Pt seen fo rfollowup re: atrial fibrillation. feels better.Not ambulating much. - Objective Vital Signs & Weight: Vital Signs (12 hours) Temp Pulse Resp BP Pulse Ox 08/20/19 16:00 98.1 F 120 H 20 118/65 96 08/20/19 11:42 97.6 F 98 18 94/64 98 Weight Admit Weight 293 lb 3.2 oz Weight 293 lb 3.2 oz I&O: 08/19/19 08/20/19 08/21/19 06:59 06:59 06:59 Intake Total 1100 1825 1100 Output Total 3300 1950 Balance 5690 -7205 -021 Result Diagrams: 08/20/19 04:50 08/20/19 04:50 Additional Labs: Labs and MARs reviewed by me EKG Reviewed by me: Yes (Tele:sherri bishop) Hospitalist ROS - Review of Systems Constitutional: reports: weakness Respiratory: reports: SOB with excertion Cardiovascular: denies: chest pain, palpitations, orthopnea, paroxysmal noc. dyspnea, edema, light headedness Gastrointestinal: denies: nausea, vomiting, abdominal pain, diarrhea, constipation, melena, hematochezia - Medication Medications: Active Medications Generic Name Dose Route Start Last Admin Trade Name Freq PRN Reason Stop Dose Admin Hydrocodone Bitart/Acetaminophen 1 tab 08/18/19 10:35 08/20/19 15:42 [place] 10/325 PO 1 tab Q6H PRN Administration Mild-Moderate Pain (1-5) Hydrocodone Bitart/Acetaminophen 1 tab 08/18/19 21:00 08/20/19 08:05 [place] 10/325 PO 1 tab BID [facility] Administration Bisacodyl 10 mg 08/20/19 10:28 08/20/19 15:43 Dulcolax PO 10 mg DAILYPRN PRN Administration Constipation Colchicine 0.3 mg 08/20/19 09:00 08/20/19 08:55 Colcrys PO 0.3 mg BID [facility] Administration Diltiazem HCl 30 mg 08/19/19 09:00 08/19/19 14:31 Cardizem PO 30 mg Q6H PRN Administration HR >120 sustained Diltiazem HCl 30 mg 08/19/19 17:00 08/20/19 15:43 Cardizem PO 30 mg ACHS [facility] Administration Enoxaparin Sodium 100 mg 08/18/19 21:00 08/20/19 08:04 Lovenox SC 100 mg [id number],2099 [facility] Administration Enoxaparin Sodium 30 mg 08/18/19 21:00 08/20/19 08:04 Lovenox SC 30 mg [id number],2099 [facility] Administration Hydroxychloroquine Sulfate 200 mg 08/18/19 21:00 08/20/19 08:05 Plaquenil PO 200 mg BID [facility] Administration Metoprolol Succinate 100 mg 08/20/19 09:00 08/20/19 08:06 Toprol Xl PO 100 mg DAILY [facility] Administration Sodium Bicarbonate 650 mg 08/19/19 21:00 08/20/19 15:43 Bicarbonate, Sodium PO 650 mg TID [facility] Administration Sodium Chloride 10 ml 08/18/19 10:35 08/19/19 20:44 Flush - Normal Saline IVF 10 ml PRN PRN Administration Saline Flush Sodium Chloride 1 gm 08/19/19 15:00 08/20/19 15:42 Sodium Chloride PO 1 gm TID [facility] Administration Temazepam 15 mg 08/18/19 16:14 08/19/19 00:11 Restoril PO 15 mg HS PRN Administration Insomnia - Exam General Appearance: awake alert Eye: anicteric sclera ENT: moist mucosa Neck: supple Heart: no rubs, irregular Respiratory: CTAB Gastrointestinal: soft, non-tender Extremities: no edema Skin: no rashes Psychiatric: normal affect, normal behavior Hosp A/P - Plan Assessment -Atrial Fibrillation with RVR -Hyponatremia -HTN -PAULA on CKD 2, resolved -N/V, resolved -RA -Obesity BMI 31.4 Plan on full dose Lovenox Lisinopril/HCTZ on hold, HTN controlled Sodium improved to 130, continue fluid restrictions Likely DOROTHY/cardioversion on Thursday
[2019-08-21] MEDS: Sodium Chloride 1 GM TAB PO SCH ×3 (07:58→20:41)
[2019-08-21] MEDS: Hydroxychloroquine Sulfate 200 MG TAB PO SCH ×2 (07:58→20:38)
[2019-08-21] MEDS: Sodium Bicarbonate Tab 325 MG TAB PO SCH (07:58)
[2019-08-21] MEDS: HYDROcodone/Acetaminophen 10/325 mg Tablet PO SCH ×2 (07:59→20:39)
[2019-08-21] MEDS: Colchicine 0.3 MG TAB PO SCH ×2 (07:59→20:38)
[2019-08-21] MEDS: Enoxaparin Sodium 100 MG/ML SYRINGE SC SCH ×2 (08:27→20:38)
[2019-08-21] MEDS: Enoxaparin Sodium 30 MG/0.3 ML SYRINGE SC SCH ×2 (08:27→20:38)
[2019-08-21 09:01] LABS: Albumin 3.4 g/dL (3.5-5.0); Anion Gap 11 mmol/L (10-20); BUN (Urea Nitrogen) 15 mg/dL (8.4-25.7); BUN/Creatinine Ratio 16.48; Calc. Creatinine Clearance 173 mL/min (70-130); Calcium 8.3 mg/dL (7.8-10.44); Carbon Dioxide 29 mmol/L (22-29); Chloride 97 mmol/L (98-107); Estimated GFR-MDRD Greater than 90; Glucose 142 mg/dL (70-105); Phosphorus 2.3 mg/dL (2.3-4.7); Potassium 3.6 mmol/L (3.5-5.1); Sodium 133 mmol/L (136-145)
--- NOTE | 2019-08-21 14:50 | PRG ---
DATE OF SERVICE: 08/21/2019 SERVICE: Nephrology. SUBJECTIVE: A 54-year-old male with known history of rheumatoid arthritis and recent diagnosis of pericarditis, admitted due to cardiac arrhythmia, chest pain, and shortness of breath. Nephrology has seen the patient for acute kidney injury and hyponatremia. The patient reports feeling better. Still having tachycardia and palpitations. Denied nausea or vomiting. OBJECTIVE: VITAL SIGNS: Temperature 98, pulse 99, respiratory rate 18, SpO2 of 99% on room air, and blood pressure is 109/52. GENERAL: Comfortable male patient, in no distress. Afebrile. Anicteric. Acyanotic. HEENT: Normocephalic, atraumatic. Oral mucosa is moist. CARDIOVASCULAR: Irregular rhythm and rate with normal heart sounds 1 and 2. The patient is tachycardic. RESPIRATORY: Good air entry bilaterally with no crackle or rhonchi or use of accessory muscles. GI: Full, soft, nontender, nondistended with normal bowel sounds. EXTREMITIES: Grossly normal looking, atraumatic with no edema or erythema except bilateral hand deformities of the digits noted. RECEPTIONIST AIRLINE LOUNGE: Conscious, alert, oriented x3 with appropriate mental status. DIAGNOSTIC DATA: Chemistry today showed sodium 133, potassium 3.6, chloride 97, CO2 of 29, BUN 15, creatinine 0.91, glucose 142, calcium 8.3, phosphorus 2.3, albumin 3.4. Vitamin D is 30.8. ASSESSMENT: 1. Hyponatremia: Due to volume contraction related to poor oral intake as well as effect of thiazide diuretic and persistent nausea and vomiting. Thiazide diuretic is off, and levels are trending up. Sodium today is 133 from a emily of 123. 2. Acute kidney injury: Due to hemodynamic factors. Resolved. 3. Metabolic acidosis: Resolved with CO2 of 29. 4. Atrial fibrillation: Persistent. 5. Rheumatoid arthritis, on Plaquenil. 6. Vitamin D deficiency, on supplementation. PLAN: 1. We will continue fluid restriction. 2. We will also discontinue sodium bicarbonate with resolution of metabolic acidosis. We will also restart vitamin D supplementation. 3. We will recheck renal function panel in the morning. 4. We will continue to avoid nephrotoxic agents. 5. Further treatment to follow depending on hospital course. Job ID: [id number]
[2019-08-21] MEDS ORDERED: Ergocalciferol 1.25 MG(50,000 UNITS) CAP PO SCH (15:00)
[2019-08-21] MEDS: HYDROcodone/Acetaminophen 10/325 mg Tablet PO PRN (15:01)
[2019-08-21] MEDS: Bisacodyl 5 MG TAB PO PRN (15:01)
--- NOTE | 2019-08-21 15:45 | PDOC.CPN ---
- Subjective Date: 08/21/19 Time: 15:47 Interval history: The pt seen and examined. No overnight events. No cardiac complaints, except chronic SOB and fatigue - Objective Allergies/Adverse Reactions: Allergies Allergy/AdvReac Type Severity Reaction Status Date / Time No Known Allergies Allergy Verified 08/08/19 19:29 Visit Medications: Current Medications Hydrocodone Bitart/Acetaminophen ([place] 10/325) 1 tab PO Q6H PRN PRN Reason: Mild-Moderate Pain (1-5) Last Admin: 08/21/19 15:01 Dose: 1 tab Hydrocodone Bitart/Acetaminophen ([place] 10/325) 1 tab PO BID [facility] Last Admin: 08/21/19 07:59 Dose: 1 tab Bisacodyl (Dulcolax) 10 mg PO DAILYPRN PRN PRN Reason: Constipation Last Admin: 08/21/19 15:01 Dose: 10 mg Colchicine (Colcrys) 0.3 mg PO BID [facility] Last Admin: 08/21/19 07:59 Dose: 0.3 mg Diltiazem HCl (Cardizem) 30 mg PO Q6H PRN PRN Reason: HR >120 sustained Last Admin: 08/19/19 14:31 Dose: 30 mg Diltiazem HCl (Cardizem) 30 mg PO ACHS [facility] Last Admin: 08/21/19 11:07 Dose: 30 mg Enoxaparin Sodium (Lovenox) 100 mg SC 0900,2100 [facility] Last Admin: 08/21/19 08:27 Dose: 100 mg Enoxaparin Sodium (Lovenox) 30 mg SC 0900,2100 [facility] Last Admin: 08/21/19 08:27 Dose: 30 mg Ergocalciferol (Drisdol) 1.25 mg PO Q7D [facility] Last Admin: 08/21/19 15:01 Dose: 1.25 mg Hydroxychloroquine Sulfate (Plaquenil) 200 mg PO BID [facility] Last Admin: 08/21/19 07:58 Dose: 200 mg Metoprolol Succinate (Toprol Xl) 100 mg PO DAILY [facility] Last Admin: 08/21/19 07:58 Dose: 100 mg Nitroglycerin (Nitrostat) 0.4 mg PO Q5MIN PRN PRN Reason: Chest Pain Sodium Chloride (Flush - Normal Saline) 10 ml IVF PRN PRN PRN Reason: Saline Flush Last Admin: 08/19/19 20:44 Dose: 10 ml Sodium Chloride (Sodium Chloride) 1 gm PO TID [facility] Last Admin: 08/21/19 15:01 Dose: 1 gm Temazepam (Restoril) 15 mg PO HS PRN PRN Reason: Insomnia Last Admin: 08/19/19 00:11 Dose: 15 mg Vital Signs & Weight: Vital Signs Temp Pulse Resp BP BP Pulse Ox 08/21/19 14:58 98.1 F 144 H 18 111/84 95 08/21/19 11:05 98.2 F 117 H 18 105/67 99 08/21/19 06:57 98 F 99 18 109/52 L 99 Admit Weight 293 lb 3.2 oz Weight 293 lb 3.2 oz - Physical Exam General: alert & oriented x3 HEENT: mucus membranes moist Neck: supple neck Cardiac: irregularly regular Lungs: clear to auscultation Neuro: grossly intact Extremities: no edema - Labs Result Diagrams: 08/20/19 04:50 08/21/19 08:13 Troponin/CKMB Troponin I 0.030 ng/mL (< 0.028) H 08/18/19 04:30 - Telemetry Supraventricular conduction: atrial fibrillation - Assessment/Plan Assessment/Plan: 1. AFib with RVR - his HR elevated with movement; on Diltizam 30mg QID, Lovenox BID, Toprol 100mg qd; Plan for DOROTHY/DCCV on Thursday if he cont. afib 2. pericarditis 3. Hyponatremia with PAULA on CKD 2 - off thiazide med and on fluid restriction 1200ml/day 4. N/V Prob due to Colchicine - on hold MAR reviewed * cath on 08/11/2019 with normal coronary arteries * Echo on 08/11/2019 with EF 55-60%, mild-mod LVH, small concentric pericardial effusion * Dr Kasper's pt Pt. seen and eval. by me. I agree with the A/P by the LACQUER SPRAY BOOTH OPERATOR. chest clear. Irreg/ irreg gjm
--- NOTE | 2019-08-21 18:00 | PDOC.HOSPP ---
- Subjective Encounter Date: 08/21/19 Encounter Time: 08:20 Subjective: Pt seen for followup for afib with RVR. Feels better. No chest pain. - Objective Vital Signs & Weight: Vital Signs (12 hours) Temp Pulse Resp BP BP Pulse Ox 08/21/19 14:58 98.1 F 144 H 18 111/84 95 08/21/19 11:05 98.2 F 117 H 18 105/67 99 08/21/19 06:57 98 F 99 18 109/52 L 99 Weight Admit Weight 293 lb 3.2 oz Weight 293 lb 3.2 oz I&O: 08/20/19 08/21/19 08/22/19 06:59 06:59 06:59 Intake Total 1825 1440 1000 Output Total 3300 2730 1500 Balance -1475 -1290 -500 Result Diagrams: 08/20/19 04:50 08/21/19 08:13 Additional Labs: Labs and MARs reviewed by me EKG Reviewed by me: Yes (Tele: sherri bishop) Hospitalist ROS - Review of Systems Constitutional: reports: weakness Cardiovascular: denies: chest pain, palpitations, orthopnea, paroxysmal noc. dyspnea, edema, light headedness Genitourinary: denies: dysuria, frequency, incontinence, hematuria, retention Skin: denies: rash, lesions, agbriella, bruising - Medication Medications: Active Medications Generic Name Dose Route Start Last Admin Trade Name Freq PRN Reason Stop Dose Admin Hydrocodone Bitart/Acetaminophen 1 tab 08/18/19 10:35 08/21/19 15:01 [place] 10/325 PO 1 tab Q6H PRN Administration Mild-Moderate Pain (1-5) Hydrocodone Bitart/Acetaminophen 1 tab 08/18/19 21:00 08/21/19 07:59 [place] 10/325 PO 1 tab BID [facility] Administration Bisacodyl 10 mg 08/20/19 10:28 08/21/19 15:01 Dulcolax PO 10 mg DAILYPRN PRN Administration Constipation Colchicine 0.3 mg 08/20/19 09:00 08/21/19 07:59 Colcrys PO 0.3 mg BID [facility] Administration Diltiazem HCl 30 mg 08/19/19 09:00 08/19/19 14:31 Cardizem PO 30 mg Q6H PRN Administration HR >120 sustained Diltiazem HCl 30 mg 08/19/19 17:00 08/21/19 16:45 Cardizem PO 30 mg ACHS [facility] Administration Enoxaparin Sodium 100 mg 08/18/19 21:00 08/21/19 08:27 Lovenox SC 100 mg 899,2099 [facility] Administration Enoxaparin Sodium 30 mg 08/18/19 21:00 08/21/19 08:27 Lovenox SC 30 mg 899,2099 [facility] Administration Ergocalciferol 1.25 mg 08/21/19 15:00 08/21/19 15:01 Drisdol PO 1.25 mg Q7D [facility] Administration Hydroxychloroquine Sulfate 200 mg 08/18/19 21:00 08/21/19 07:58 Plaquenil PO 200 mg BID [facility] Administration Metoprolol Succinate 100 mg 08/20/19 09:00 08/21/19 07:58 Toprol Xl PO 100 mg DAILY [facility] Administration Sodium Chloride 10 ml 08/18/19 10:35 08/19/19 20:44 Flush - Normal Saline IVF 10 ml PRN PRN Administration Saline Flush Sodium Chloride 1 gm 08/19/19 15:00 08/21/19 15:01 Sodium Chloride PO 1 gm TID [facility] Administration Temazepam 15 mg 08/18/19 16:14 08/19/19 00:11 Restoril PO 15 mg HS PRN Administration Insomnia - Exam General Appearance: awake alert Eye: anicteric sclera ENT: normocephalic atraumatic, moist mucosa Neck: supple, no thyromegaly Heart: no rubs, irregular Respiratory: CTAB Gastrointestinal: soft, non-tender Extremities: no cyanosis Psychiatric: normal affect, normal behavior Hosp A/P - Plan out of bed/ambulate Assessment -Atrial Fibrillation with RVR -Hyponatremia -HTN -PAULA on CKD 2, resolved -RA -Obesity BMI 31.4 -N/V, resolved Plan Lisinopril and triamterene/HCTZ on hold HTN controlled Sodium improved to 133 Likely DOROTHY/cardioversion tomorrow
[2019-08-22 04:40] LABS: Hemoglobin 11.7 g/dL (14.0-18.0); Mean Corpuscular HGB CONC 33.3 g/dL (32.0-36.0); Mean Corpuscular Hemoglobin 28.4 pg (27.0-31.0); Mean Corpuscular Volume 85.3 fL (78.0-98.0); Mean Platelet Volume 7.5 fL (7.4-10.4); Platelet Count 309 thou/uL (130-400); RBC Distribution Width 12.4 % (11.5-14.5); Red Blood Cell (RBC) Count 4.11 mill/uL (4.70-6.10); White Blood Cell (WBC) Count 9.8 thou/uL (4.8-10.8)
[2019-08-22 05:04] LABS: Anion Gap 14 mmol/L (10-20); BUN (Urea Nitrogen) 13 mg/dL (8.4-25.7); BUN/Creatinine Ratio 15.48; Calc. Creatinine Clearance 187 mL/min (70-130); Calcium 8.1 mg/dL (7.8-10.44); Carbon Dioxide 24 mmol/L (22-29); Chloride 100 mmol/L (98-107); Estimated GFR-MDRD Greater than 90; Glucose 112 mg/dL (70-105); Phosphorus 3.5 mg/dL (2.3-4.7); Potassium 3.9 mmol/L (3.5-5.1); Sodium 134 mmol/L (136-145)
[2019-08-22] MEDS ORDERED: Midazolam HCl 2 mg/2 ml Vial ONE (08:04)
[2019-08-22] MEDS ORDERED: PROPOFOL 40 ML ONE (08:09)
--- NOTE | 2019-08-22 09:12 | PRG ---
DATE OF SERVICE: 08/22/2019 SUBJECTIVE: Mr. Lizarraga underwent cardioversion today. He is currently still sleeping. REVIEW OF SYSTEMS: Not obtainable. OBJECTIVE: VITAL SIGNS: His blood pressure earlier was 119/75, pulse is variable with sometimes rate was up in the 130s even the 180s with atrial fibrillation. LUNGS: No wheezing or rales. CARDIAC: Now, it is normal sinus rhythm. It is regular. No murmur, rub, or gallop. ABDOMEN: Soft and nontender. ASSESSMENT: 1. Pericarditis, being treated with low-dose colchicine, could not tolerate full-dose colchicine. 2. Atrial fibrillation. Suspect that is related to the pericarditis, now is in sinus rhythm. 3. Hyponatremia, nearly back to normal now with sodium 134. 4. Renal failure is back to normal renal function 0.84. PLAN: 1. He is on metoprolol 100 mg a day. 2. He is on diltiazem. 3. He is on enoxaparin. 4. I try to increase activity today now that is in sinus rhythm. Unfortunately, really cannot give him any antiarrhythmics as the colchicine and hydroxychloroquine are both noted to potentially interact with the antiarrhythmics. Job ID: [id number]
[2019-08-22] MEDS: Sodium Chloride 1 GM TAB PO SCH ×3 (11:24→22:04)
[2019-08-22] MEDS: HYDROcodone/Acetaminophen 10/325 mg Tablet PO SCH ×2 (11:25→22:02)
[2019-08-22] MEDS: Hydroxychloroquine Sulfate 200 MG TAB PO SCH ×2 (11:25→22:02)
[2019-08-22] MEDS: Enoxaparin Sodium 100 MG/ML SYRINGE SC SCH ×2 (11:26→22:02)
[2019-08-22] MEDS: Enoxaparin Sodium 30 MG/0.3 ML SYRINGE SC SCH ×2 (11:26→22:02)
[2019-08-22] MEDS: Colchicine 0.3 MG TAB PO SCH ×2 (11:26→22:10)
[2019-08-22] MEDS ORDERED: PROPOFOL 200 MG/20 ML VIAL ONE (12:02)
--- NOTE | 2019-08-22 13:23 | OP ---
DATE OF PROCEDURE: 08/22/2019 PROCEDURE PERFORMED: Transesophageal echocardiogram. INDICATIONS: Mitral regurgitation. DESCRIPTION OF PROCEDURE: The patient was taken to the PACU. The patient was sedated by Anesthesiology. Transesophageal probe was placed into the distal esophagus and stomach. Echocardiographic images were obtained. The transesophageal probe was removed. FINDINGS: 1. Normal left systolic function. 2. Normal mitral and aortic valves. 3. Mild mitral regurgitation. 4. Mild tricuspid regurgitation. 5. No thrombus is noted in the left atrium or left atrial appendage. 6. Small pericardial effusion. 7. Atherosclerotic debris in the descending aorta. IMPRESSION: No formed thrombus in the left atrium or left atrial appendage with mild mitral regurgitation. Job ID: [id number]
--- NOTE | 2019-08-22 15:49 | PRG ---
DATE OF SERVICE: 08/22/2019 SERVICE: Nephrology. SUBJECTIVE: A 54-year-old male, seen in followup for hyponatremia. The patient also had acute kidney injury, which has resolved. Status post DC cardioversion for atrial fibrillation with rapid ventricular response earlier today. Complains of generalized body ache and weakness. OBJECTIVE: VITAL SIGNS: Temperature 97.2, pulse 86, respiratory rate 18, SpO2 of 98% on room air, and blood pressure is 128/81. GENERAL: Comfortable male patient, in no obvious distress. HEENT: Normocephalic, atraumatic. Oral mucosa is moist. CARDIOVASCULAR: Regular rhythm and rate with normal heart sounds 1 and 2. RESPIRATORY: Good air entry bilaterally with no crackles, rhonchi, or use of accessory muscles. GI: Full, soft, nontender, nondistended with normal bowel sounds. EXTREMITIES: Grossly normal looking with no edema or erythema. Flexion/extension deformities of both hands noted. SHOE TURNER: Conscious, alert, oriented x3 with appropriate mental status. Cranial nerves 2 through 12 are grossly intact. DIAGNOSTIC DATA: CBC showed WBC count of 9.8, hemoglobin of 11.7, and platelets of 309. Chemistry showed sodium 134, potassium 3.9, chloride 100, CO2 of 24, BUN 13, creatinine 0.4, glucose 112, calcium 8.1, phosphorus 3.5, and albumin 3.0. ASSESSMENT: 1. Hyponatremia: Most likely due to thiazide diuretic. Sodium level is trending up with fluid restriction and salt tablet. We will continue salt tablet today. We will plan to discontinue salt tablet tomorrow and continue only fluid restriction by tomorrow. 2. Acute kidney injury: Due to hemodynamic factors related to diuretics, volume depletion, and use of [id number]-pbqdzoedcuv system kofi, resolved. 3. Atrial fibrillation, status post cardioversion. 4. Hypertension, control is acceptable. PLAN: We will recheck renal function test in the morning. Job ID: [id number]
--- NOTE | 2019-08-22 16:56 | CCLSPC ---
PROCEDURE: Cardioversion. Patient is brought to the post cath area in the fasting state. He was given 200 joules direct current synchronized energy. He did not convert to sinus rhythm. He was in atrial fibrillation with a rapid rate and he was given 300 joules direct current synchronized energy, did not convert to sinus rhythm. These were all synchronized energy doses. He was given 360 joules direct current synchronized energy and converted to sinus rhythm. CONCLUSION: Successful cardioversion, did require 360 joules to convert to sinus. Job ID: [id number]
--- NOTE | 2019-08-22 18:53 | PDOC.HOSPP ---
- Subjective Encounter Date: 08/22/19 Encounter Time: 18:52 Subjective: Pt seen for followup re: afib. Feels well, had cardioversion. - Objective Vital Signs & Weight: Vital Signs (12 hours) Temp Pulse Resp BP Pulse Ox 08/22/19 16:00 96.9 F L 81 16 126/76 96 08/22/19 12:00 97.1 F L 81 17 122/76 97 08/22/19 09:40 97.2 F L 86 18 128/81 98 08/22/19 07:51 95 08/22/19 07:45 96.9 F L 65 17 119/75 95 Weight Admit Weight 293 lb 3.2 oz Weight 293 lb 3.2 oz I&O: 08/21/19 08/22/19 08/23/19 06:59 06:59 06:59 Intake Total 1440 1240 720 Output Total 2730 1875 400 Balance -1290 -635 320 Result Diagrams: 08/22/19 04:21 08/22/19 04:21 Additional Labs: Labs and MARs reviewed by me EKG Reviewed by me: Yes (Tele: NSR) Hospitalist ROS - Review of Systems Constitutional: denies: fever, chills, sweats, weakness, malaise Cardiovascular: denies: chest pain, palpitations, orthopnea, paroxysmal noc. dyspnea, edema, light headedness Genitourinary: denies: dysuria, frequency, incontinence, hematuria - Medication Medications: Active Medications Generic Name Dose Route Start Last Admin Trade Name Freq PRN Reason Stop Dose Admin Hydrocodone Bitart/Acetaminophen 1 tab 08/18/19 10:35 08/21/19 15:01 [place] 10/325 PO 1 tab Q6H PRN Administration Mild-Moderate Pain (1-5) Hydrocodone Bitart/Acetaminophen 1 tab 08/18/19 21:00 08/22/19 11:25 [place] 10/325 PO 1 tab BID [facility] Administration Bisacodyl 10 mg 08/20/19 10:28 08/21/19 15:01 Dulcolax PO 10 mg DAILYPRN PRN Administration Constipation Colchicine 0.3 mg 08/20/19 09:00 08/22/19 11:26 Colcrys PO 0.3 mg BID [facility] Administration Diltiazem HCl 30 mg 08/19/19 09:00 08/19/19 14:31 Cardizem PO 30 mg Q6H PRN Administration HR >120 sustained Diltiazem HCl 30 mg 08/19/19 17:00 08/22/19 17:56 Cardizem PO 30 mg ACHS [facility] Administration Enoxaparin Sodium 100 mg 08/18/19 21:00 08/22/19 11:26 Lovenox SC 100 mg 899,2099 [facility] Administration Enoxaparin Sodium 30 mg 08/18/19 21:00 08/22/19 11:26 Lovenox SC 30 mg 00,2099 [facility] Administration Ergocalciferol 1.25 mg 08/21/19 15:00 08/21/19 15:01 Drisdol PO 1.25 mg Q7D [facility] Administration Hydroxychloroquine Sulfate 200 mg 08/18/19 21:00 08/22/19 11:25 Plaquenil PO 200 mg BID [facility] Administration Metoprolol Succinate 100 mg 08/20/19 09:00 08/22/19 11:26 Toprol Xl PO 100 mg DAILY [facility] Administration Sodium Chloride 10 ml 08/18/19 10:35 08/21/19 20:40 Flush - Normal Saline IVF 10 ml PRN PRN Administration Saline Flush Sodium Chloride 1 gm 08/19/19 15:00 08/22/19 14:59 Sodium Chloride PO 1 gm TID [facility] Administration Temazepam 15 mg 08/18/19 16:14 08/19/19 00:11 Restoril PO 15 mg HS PRN Administration Insomnia - Exam General Appearance: awake alert Eye: anicteric sclera ENT: no oropharyngeal lesions Neck: symmetric, no thyromegaly Heart: RRR, no rubs Respiratory: CTAB Gastrointestinal: soft, non-tender Extremities: no cyanosis Psychiatric: normal affect, normal behavior Hosp A/P - Plan Assessment -Atrial Fibrillation with RVR -Hyponatremia -HTN -PAULA on CKD 2, resolved -RA -Obesity BMI 31.4 -N/V, resolved Plan Resume Lisinopril and hold triamterene/HCTZ HTN controlled Sodium improved to 134 s/p DOROTHY/cardioversion today
[2019-08-22] MEDS ORDERED: Colchicine 0.6 MG TAB PO SCH (21:00)
[2019-08-22] MEDS: Temazepam 15 MG CAP PO PRN (22:04)
[2019-08-23 04:58] LABS: Anion Gap 11 mmol/L (10-20); BUN (Urea Nitrogen) 13 mg/dL (8.4-25.7); Calc. Creatinine Clearance 160 mL/min (70-130); Calcium 8.3 mg/dL (7.8-10.44); Carbon Dioxide 28 mmol/L (22-29); Chloride 101 mmol/L (98-107); Estimated GFR-MDRD Greater than 90; Glucose 113 mg/dL (70-105); Potassium 3.9 mmol/L (3.5-5.1); Sodium 136 mmol/L (136-145)
--- NOTE | 2019-08-23 08:27 | PRG ---
DATE OF SERVICE: 08/23/2019 SUBJECTIVE: Mr. Lizarraga is feeling better today. Does not report chest pain. His arthritis is about the same. OBJECTIVE: VITAL SIGNS: Blood pressure 123/67, pulse 76 and regular. LUNGS: Clear. CARDIAC: Normal S1, normal S2. ABDOMEN: Soft, nontender. EXTREMITIES: There is no edema. ASSESSMENT: 1. Pericarditis. Previously intolerant to colchicine 0.6 mg twice a day. 2. Atrial fibrillation, status post cardioversion. Did require 360 joules of direct current energy. PLAN: 1. We will probably have to reduce the colchicine back to 0.3 mg twice a day. 2. Change to Eliquis. 3. Likely, we would best to keep him another day to make sure he is not going to go back in fibrillation. Job ID: [id number]
--- NOTE | 2019-08-23 09:19 | PRG ---
DATE OF SERVICE: 08/23/2019 SERVICE: Nephrology. SUBJECTIVE: A 54-year-old male seen in followup for acute kidney injury and hyponatremia. No new problem. OBJECTIVE: VITAL SIGNS: Temperature 98.2, pulse 76, respiratory rate 18, SpO2 of 96% on room air, blood pressure is 123/65. GENERAL: Comfortable male, in no distress. CARDIOVASCULAR: Regular rhythm and rate with normal heart sounds 1 and 2. RESPIRATORY: Good air entry bilaterally with no obvious crackle or rhonchi or use of accessory muscles. GI: Full, soft, nontender, nondistended with normal bowel sounds. MUSCULOSKELETAL: No edema or erythema. Deformities of the both hands noted. CODE NUMBER STAMPER: Conscious, alert, oriented x3 with appropriate mental status. DIAGNOSTIC DATA: Chemistry today showed sodium 136, potassium 3.9, chloride 101, CO2 of 28, BUN 13, creatinine 0.98, glucose 113, calcium 8.3. ASSESSMENT: 1. Hyponatremia: Most likely related to thiazide diuretics as well as volume contraction with excess free water intake. Resolved with fluid restriction and salt tablet. Sodium today is 136. 2. Acute kidney injury: Related to hemodynamic factors due to diuretic use, poor oral intake, volume contraction as well as use of qjgcs-cmzssrmbelw-lvlerghkyry system kofi. Resolved with IV fluid therapy. 3. Atrial fibrillation, status post cardioversion. 4. Hypertension: Control is acceptable. PLAN: 1. Continue free water restriction as well as salt tablet. 2. Avoid thiazide diuretics. 3. Repeat CBC in 1 week and follow up in clinic in 1 week for determination about discontinuation of salt tablets. Job ID: [id number]
[2019-08-23] MEDS: Colchicine 0.6 MG TAB PO SCH ×2 (09:21→21:27)
[2019-08-23] MEDS: Apixaban 5 MG TAB PO SCH ×2 (09:21→21:27)
[2019-08-23] MEDS: Hydroxychloroquine Sulfate 200 MG TAB PO SCH ×2 (09:23→21:26)
[2019-08-23] MEDS: HYDROcodone/Acetaminophen 10/325 mg Tablet PO SCH ×2 (09:23→21:26)
[2019-08-23] MEDS: Sodium Chloride 1 GM TAB PO SCH ×3 (09:24→21:26)
[2019-08-23] MEDS: Temazepam 15 MG CAP PO PRN ×2 (12:07→21:29)
--- NOTE | 2019-08-23 18:39 | PDOC.HOSPP ---
- Subjective Encounter Date: 08/23/19 Encounter Time: 11:20 Subjective: Pt seen for followup re:atrial fibrillation. Denies any chest pain, shortness of breath, fevers or chills. - Objective Vital Signs & Weight: Vital Signs (12 hours) Temp Pulse Resp BP BP Pulse Ox 08/23/19 17:59 78 136/69 08/23/19 15:02 97.4 F L 73 16 119/71 94 L 08/23/19 11:37 97.6 F 66 16 112/74 93 L 08/23/19 07:35 98.2 F 76 18 123/67 96 Weight Admit Weight 293 lb 3.2 oz Weight 293 lb I&O: 08/22/19 08/23/19 08/24/19 06:59 06:59 06:59 Intake Total 1240 820 975 Output Total 1875 675 900 Balance -635 145 75 Result Diagrams: 08/22/19 04:21 08/23/19 04:07 Additional Labs: Labs and MARs reviewed by me EKG Reviewed by me: Yes (Tele: NSR) Hospitalist ROS - Review of Systems Cardiovascular: denies: chest pain, palpitations, orthopnea, paroxysmal noc. dyspnea, edema, light headedness Musculoskeletal: denies: neck pain, shoulder pain, arm pain, back pain, hand pain, leg pain, foot pain Skin: denies: rash, lesions, gabriella, bruising - Medication Medications: Active Medications Generic Name Dose Route Start Last Admin Trade Name Freq PRN Reason Stop Dose Admin Hydrocodone Bitart/Acetaminophen 1 tab 08/18/19 10:35 08/21/19 15:01 [place] 10/325 PO 1 tab Q6H PRN Administration Mild-Moderate Pain (1-5) Hydrocodone Bitart/Acetaminophen 1 tab 08/18/19 21:00 08/23/19 09:23 [place] 10/325 PO 1 tab BID [facility] Administration Apixaban 5 mg 08/23/19 09:00 08/23/19 09:21 Eliquis PO 5 mg BID [facility] Administration Bisacodyl 10 mg 08/20/19 10:28 08/21/19 15:01 Dulcolax PO 10 mg DAILYPRN PRN Administration Constipation Colchicine 0.3 mg 08/23/19 09:00 08/23/19 09:21 Colchicine PO 0.3 mg BID [facility] Administration Diltiazem HCl 30 mg 08/19/19 09:00 08/19/19 14:31 Cardizem PO 30 mg Q6H PRN Administration HR >120 sustained Diltiazem HCl 30 mg 08/19/19 17:00 08/23/19 17:59 Cardizem PO 30 mg ACHS [facility] Administration Ergocalciferol 1.25 mg 08/21/19 15:00 08/21/19 15:01 Drisdol PO 1.25 mg Q7D [facility] Administration Hydroxychloroquine Sulfate 200 mg 08/18/19 21:00 08/23/19 09:23 Plaquenil PO 200 mg BID [facility] Administration Metoprolol Succinate 100 mg 08/20/19 09:00 08/23/19 09:23 Toprol Xl PO 100 mg DAILY [facility] Administration Sodium Chloride 10 ml 08/18/19 10:35 08/22/19 22:04 Flush - Normal Saline IVF 10 ml PRN PRN Administration Saline Flush Sodium Chloride 1 gm 08/19/19 15:00 08/23/19 14:56 Sodium Chloride PO 1 gm TID [facility] Administration Temazepam 15 mg 08/23/19 11:15 08/23/19 12:07 Restoril PO 15 mg HSPRN PRN Administration Insomnia - Exam General - other findings: Obese Eye: anicteric sclera ENT: normocephalic atraumatic Neck: no JVD, no thyromegaly Heart: RRR Respiratory: CTAB Gastrointestinal: soft, no palpable masses Musculoskeletal: no muscle wasting Psychiatric: normal affect, normal behavior Hosp A/P - Plan Assessment -Atrial Fibrillation with RVR -Hyponatremia -HTN -PAULA on CKD 2, resolved -RA -Obesity BMI 31.4 -N/V, resolved Plan s/p DOROTHY/cardioversion yesterday Resume Lisinopril and continue to hold triamterene/HCTZ HTN controlled Hyponatremia resolved
[2019-08-24] MEDS: Apixaban 5 MG TAB PO SCH (09:02)
[2019-08-24] MEDS: Colchicine 0.6 MG TAB PO SCH (09:03)
[2019-08-24] MEDS: Hydroxychloroquine Sulfate 200 MG TAB PO SCH (09:03)
[2019-08-24] MEDS: HYDROcodone/Acetaminophen 10/325 mg Tablet PO SCH (09:03)
[2019-08-24] MEDS: Sodium Chloride 1 GM TAB PO SCH (09:04)
[2019-08-24 11:09] VITALS: BP 129/66; TEMP 97.5
--- NOTE | 2019-08-24 11:22 | PRG ---
DATE OF SERVICE: 08/24/2019 SUBJECTIVE: Mr. Lizarraga feels well. No chest pain or pressure. No complaints. OBJECTIVE: VITAL SIGNS: Blood pressure 130/80 and pulse 70 and it is regular. LUNGS: Clear. CARDIAC: Normal S1. Normal S2. ABDOMEN: Soft and nontender. EXTREMITIES: No edema. ASSESSMENT: 1. Pericarditis, clinically improved. 2. Paroxysmal atrial fibrillation, maintaining sinus rhythm after cardioversion. 3. Rheumatoid arthritis. PLAN: 1. He is on metoprolol succinate 100 mg a day. 2. Diltiazem 30 mg 4 times a day. 3. Colchicine 0.3 mg twice a day. 4. Eliquis 5 mg twice a day. We have not started any antiarrhythmics as that appeared to be contraindicated with hydroxychloroquine. The patient will be released home. If he has recurrent pericarditis, then I think we will need to try to get a hold of his deputy sheriff building guard to see if we need to try to treat the rheumatoid arthritis differently. At this time, it is really not clear to me whether the rheumatoid arthritis is causative or associated with a pericarditis or whether this is the usual idiopathic pericarditis. As mentioned, if he has recurrence, we should likely get hold of his deputy sheriff building guard and check with him. He currently is doing quite well. Job ID: [id number]
--- NOTE | 2019-08-24 20:56 | DIS ---
DATE OF ADMISSION: 08/18/2019 DATE OF DISCHARGE: 08/24/2019 PRIMARY CARE PROVIDER: Dr. Terrence Nazario. DISCHARGE DIAGNOSES: 1. Atrial fibrillation with rapid ventricular response. 2. Hyponatremia. 3. Acute kidney injury. CONDITION OF PATIENT ON THE DAY OF DISCHARGE: Stable. I assessed Mr. Lizarraga on the day of discharge. He denies any chest pain or shortness of breath. Vital signs are stable. S1 and S2 are heard, regular. Lungs are clear to auscultation bilaterally. CONSULTATIONS DURING THIS HOSPITALIZATION: Cardiology, Dr. Kasper and Nephrology, Dr. Lanier. DISCHARGE MEDICATIONS: Triamterene/hydrochlorothiazide was discontinued. He has been started on, 1. Apixaban 5 mg two times a day. 2. Colchicine dose was decreased to 0.3 mg 2 times a day. 3. Cardizem 30 mg before meals and at bedtime. 4. Toprol-XL 100 mg daily. The remainder of his home medications were continued and [place]: [place] [address] units every week. 2. [place] p.r.n. 3. Plaquenil 200 mg 2 times a day. 4. Temazepam p.r.n. HOSPITAL COURSE: Mr. Lizarraga is a pleasant 54-year-old gentleman, who was admitted to [facility] on August 18, 2019, for atrial fibrillation with rapid ventricular response, acute kidney injury, and hyponatremia. Hydrochlorothiazide/triamterene was discontinued. He was also started on fluid restriction. He was seen by Cardiology and Nephrology Services. He continued to be in atrial fibrillation. On August 22, 2019, he underwent DOROTHY followed by electrical cardioversion. His acute kidney injury resolved. Hyponatremia also resolved. He is being discharged home in a stable condition. POST-ACUTE CARE FOLLOWUP: With primary care provider on August 26, 2019 at 8:30 a.m., with Dr. Lanier on September 01, 2019 at 11:00 a.m., and with Dr. Cummings in 2 to 3 weeks. DIET: Heart healthy. ACTIVITY: No restrictions. DISCHARGE DESTINATION: Home. TIME SPENT: Total amount of time spent coordinating this discharge: 32 minutes. Job ID: [id number]
[2019-08-29] MEDS ORDERED: Ergocalciferol 1.25 MG(50,000 UNITS) CAP PO SCH (09:00)
== END 2019-08-24 13:20 | disposition home or self-care (01) | DRG 309 ==
LOC: ERS 00:10 → ERHOLD 00:54 → 2NO 14:42
PROVIDERS: ADMIT Internal Medicine; ATTEND Internal Medicine
PROC: 5A2204Z Restoration of Cardiac Rhythm, Single (ICD-10-PCS; principal; 2019-08-22)
PROC: B24BZZ4 Ultrasonography of Heart with Aorta, Transesophageal (ICD-10-PCS; 2019-08-22)
DX: I48.0 Paroxysmal atrial fibrillation (principal); E22.2 Syndrome of inappropriate secretion of antidiuretic hormone; N17.9 Acute kidney failure, unspecified; I31.9 Disease of pericardium, unspecified; M06.9 Rheumatoid arthritis, unspecified; I34.0 Nonrheumatic mitral (valve) insufficiency; E66.9 Obesity, unspecified; I12.9 Hypertensive chronic kidney disease with stage 1 through stage 4 chronic kidney disease, or unspecified chronic kidney disease; N18.2 Chronic kidney disease, stage 2 (mild); E86.0 Dehydration; E55.9 Vitamin D deficiency, unspecified; T46.4X5A Adverse effect of angiotensin-converting-enzyme inhibitors, initial encounter; Z87.891 Personal history of nicotine dependence; Z68.31 Body mass index [BMI] 31.0-31.9, adult; Z79.899 Other long term (current) drug therapy; Z79.82 Long term (current) use of aspirin
CPT/HCPCS: 36415; 80048; 80069; 81001; 82306; 82570; 83735; 83880; 83930; 83935; 84156; 84300; 84484; 84540; 85025; 85027; 85610; 85730; 87086; 92960; 93005; 93312; 94760; 96365; 96366; 96375; J1650; J1885; J2250; J2270; J2405; J2704

== ENCOUNTER 2019-08-28 15:07 | Inpatient (IN) | payer MEDICARE, OTHER ==
[~2019-08-28 15:07] MED LIST: Iopamidol-370 76% 500 ML 1 ML ONE
[2019-08-28] MEDS ORDERED: Ondansetron PF 4 MG/2 ML Vial ONE (15:23)
[2019-08-28 15:30] LABS: #Lymphocytes 2.1 thou/uL (1.20-3.40); #Monocytes 1.3 thou/uL (0.11-0.59); #Neutrophils 10.4 thou/uL (1.40-6.50); %Eosinophils 0.1 % (0.0-10.0); %Lymphocytes 15.3 % (21.0-51.0); %Monocytes 9.4 % (0.0-10.0); %Neutrophils 75.1 % (42.0-75.0); Hemoglobin 13.1 g/dL (14.0-18.0); Mean Corpuscular HGB CONC 31.7 g/dL (32.0-36.0); Mean Corpuscular Hemoglobin 26.9 pg (27.0-31.0); Platelet Count 345 thou/uL (130-400); RBC Distribution Width 12.7 % (11.5-14.5); Red Blood Cell (RBC) Count 4.86 mill/uL (4.70-6.10); White Blood Cell (WBC) Count 13.8 thou/uL (4.8-10.8)
[2019-08-28] MEDS ORDERED: Metoclopramide HCl 10 MG/2 ML VIAL ONE (15:43)
[2019-08-28] MEDS ORDERED: diphenhydrAMINE 50 MG/ML VIAL ONE (15:45)
[2019-08-28 15:52] LABS: ALT (SGPT) 48 U/L (8-55); AST (SGOT) 21 U/L (5-34); Albumin 3.6 g/dL (3.5-5.0); Alkaline Phosphatase 82 U/L (40-110); Anion Gap 12 mmol/L (10-20); BUN (Urea Nitrogen) 12 mg/dL (8.4-25.7); Bilirubin, Total 0.8 mg/dL (0.2-1.2); Calc. Creatinine Clearance 0 mL/min (70-130); Calcium 9.1 mg/dL (7.8-10.44); Carbon Dioxide 26 mmol/L (22-29); Chloride 103 mmol/L (98-107); Estimated GFR-MDRD Greater than 90; Globulin 3.9 g/dL (2.4-3.5); Glucose 132 mg/dL (70-105); Potassium 3.7 mmol/L (3.5-5.1); Protein, Total 7.5 g/dL (6.0-8.3); Sodium 137 mmol/L (136-145)
[2019-08-28 16:11] LABS: Bacteria/HPF None Seen HPF (None Seen); Bilirubin Negative (Negative); Blood, Urine 1+ (Negative); Clarity Clear (Clear); Glucose, Urine (Dipstick) Normal (Negative); Ketone, Urine 10 mg/dL (Negative); Leukocyte Negative Leu/uL (Negative); Nitrite Negative (Negative); Protein, Urine (Dipstick) 70 mg/dL (Neg-Trace); Squamous Epithelial 0-3 HPF (0-3); Urobilinogen 3 mg/dL (Less than 2); WBC/HPF 0-3 HPF (0-3)
--- NOTE | 2019-08-28 16:15 | RAD ---
Chest one view HISTORY: Chest pain. COMPARISON: 08/17/2019. FINDINGS: Cardiac silhouette is magnified and enlarged. Pulmonary vasculature is upper limits of norm al. Left hemidiaphragm is now partially obscured by ill-defined parenchymal opacity. Blunting of the late ral costophrenic angle is also suspected. No evidence of pneumothorax. radiation monitor leads overlie the chest. IMPRESSION : Left basilar infiltrate with suspected small amount of left pleural fluid. Clinical correlation regar ding other signs and symptoms of left basilar pneumonitis is required. Cardiomegaly, stable.
--- NOTE | 2019-08-28 16:28 | CT ---
CT abdomen and pelvis with IV contrast HISTORY: Abdominal pain. Vomiting. COMPARISON: 08/08/2019. FINDINGS: Significant bilateral pleural fluid has developed with mild bibasilar atelectasis. Pericard ial fluid has increased significantly. The tiny areas of hyperdensity within the liver on the previous exam are no longer apparent. Solid or tesfaye have a normal appearance. Urinary bladder is decompressed. No evidence of bowel obstruction or inflammation. Degenerative changes of the lumbar spine and hips. IMPRESSION : No evidence of bowel obstruction or inflammation. Large pericardial effusion. Moderate bilateral pleural effusions. Cause is not evident.
[2019-08-28] MEDS ORDERED: chlorproMAZINE HCl 25 MG TAB PO SCH (17:15)
[2019-08-28] MEDS ORDERED: Ondansetron PF 4 MG/2 ML Vial IVP PRN (17:20)
[2019-08-28] MEDS ORDERED: Senokot S 8.6-50 MG TAB PO PRN (17:20)
[2019-08-28] MEDS ORDERED: Acetaminophen 325 MG TAB PO PRN (17:20)
[2019-08-28] MEDS ORDERED: Bisacodyl 10 MG SUPP PR PRN (17:20)
[2019-08-28] MEDS ORDERED: Guaifenesin DM 100-10/5 ML UDCUP PO PRN (17:20)
[2019-08-28] MEDS ORDERED: Calcium Carbonate 500 MG ChewTAB PO PRN (17:20)
--- NOTE | 2019-08-28 18:10 | HP ---
REASON FOR ADMISSION: Severe orthopnea, chest pain with shortness of breath, hiccups. HISTORY OF PRESENTING ILLNESS: The patient came to ER with complaints of worsening shortness of breath with orthopnea. He was not able to lie down flat on the bed and had to sit upright for last 2 nights now. Also this was getting progressively worse and the patient made it to emergency room here. He has known history of pericarditis and atrial fibrillation, for which he has had cardioversion and was placed on colchicine and Eliquis. He has had two recent hospitalizations, one on the 07 of August and the second one on the 16 of August. The patient has seen Dr. Kasper for Cardiology. No complaints of cough or expectoration. No exposure to coronavirus. He has had a previous negative coronavirus PCR done on his admission on August 07. No fever at home. PAST MEDICAL AND SURGICAL HISTORY: Echo done on August 08 showed EF of 55% to 60%, there was moderate concentric LVH, small pericardial effusion was seen, no tamponade physiology was seen on the echo. Coronary angiogram done on 08/08/2019 showed normal coronary arteries, EF was 60%. 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 PERSONAL HISTORY: Does not abuse alcohol or drugs. Quit smoking more than 16 years back. FAMILY HISTORY: Father in his 90s. Mother in her 70s. has history of Tayla disease. CODE STATUS: Full. Power of district attorney is his . CURRENT MEDICATIONS: 1. [place] 10/325 mg one tablet twice daily. 2. Plaquenil 200 mg p.o. twice daily for rheumatoid arthritis. 3. Temazepam 15 mg p.o. at bedtime p.r.n. 4. Eliquis 5 mg twice daily. 5. Colchicine 0.3 mg twice daily. 6. Cardizem 30 mg p.o. a.c. and at bedtime. 7. Toprol-XL 100 mg p.o. daily. ALLERGIES: NO KNOWN DRUG ALLERGIES. REVIEW OF SYSTEMS: CONSTITUTIONAL: Negative for weight loss or gain, ability to conduct usual activities. SKIN: Negative for rash, itching. EYES: Negative for double vision, pain. ENT/MOUTH: Negative for nose bleeding, neck stiffness, pain, tenderness. CARDIOVASCULAR: Negative for palpitations, dyspnea on exertion, orthopnea. RESPIRATORY: Negative for shortness of breath, wheezing, cough, hemoptysis, fever or night sweats. GASTROINTESTINAL: Negative for poor appetite, abdominal pain, heartburn, nausea, vomiting, constipation, or diarrhea. GENITOURINARY: Negative for urgency, frequency, dysuria, nocturia. MUSCULOSKELETAL: Negative for pain, swelling. NEUROLOGIC/PSYCHIATRIC: Negative for anxiety, depression. ALLERGY/IMMUNOLOGIC: Negative for skin rash, bleeding tendency. PHYSICAL EXAMINATION: GENERAL: The patient is a 54-year-old male, who is currently in moderate distress from severe hiccups. VITAL SIGNS: Blood pressure 116/90, pulse 96 per minute, respiratory rate 20 per minute, temperature 99.1 degrees Fahrenheit, saturating 98% on room air. NECK: Supple. No elevated JVD. HEENT: Eyes; extraocular muscles are intact. Pupils reacting to light. Oral cavity, mucous membranes are moist. No exudates or congestion. CARDIOVASCULAR: [place]. Regular rhythm. RESPIRATORY: Air entry 1+ bilateral. Scattered rhonchi plus. No wheezes. ABDOMEN: Soft. Bowel sounds heard. No tenderness, rigidity, or guarding. EXTREMITIES: There is mild peripheral edema. No calf tenderness. VASCULAR: Peripheral pulses 1+ bilateral. No ischemic ulcerations or gangrene. CENTRAL NERVOUS SYSTEM: No gross focal motor deficits noted. The patient is alert, awake, and oriented well. PSYCHIATRIC: The patient's mood is euthymic. No hallucinations or delusions. LABORATORY DATA: White count of 13, hemoglobin and hematocrit 13 and 41, platelet count 345, MCV is 85 with 75% neutrophils, 15% lymphocytes. Electrolytes stable. BUN 12, creatinine 0.9, serum glucose 132. Liver enzymes are within normal limits. Albumin 3.6. Troponin-I x1 negative. BNP 98. Lipase is 16. IMAGING STUDIES: CT of the abdomen and pelvis with contrast done shows no bowel obstruction or inflammation. There is large pericardial effusion and moderate bilateral pleural effusion seen. EKG done shows normal sinus rhythm at 90 beats per minute. There is nonspecific ST-T wave changes. CLINICAL IMPRESSION AND PLAN: The patient will be admitted to telemetry under observation initially and likely will be switched over to inpatient status if he needs further workup for his pericardial effusion. His pericardial effusion has grown in size from mild amount in the past 30 days now. He was on colchicine and Eliquis was added for his recent atrial fibrillation with cardioversion. We will hold his Eliquis for now. I have spoken to Dr. Foss for Cardiothoracic Surgery consultation. We will consult Dr. Kasper in the morning. Echo with 2D Doppler will be obtained to see for any tamponade physiology with enlarging pericardial effusion. The patient also has bilateral pleural effusion with questionable infiltrate in the left lower lobe. He has a white count of 13. Blood cultures have been obtained in the ER. We will obtain a repeat COVID-19 test as well. We will hold off on any antibiotics for now. We will continue colchicine, Cardizem, Plaquenil, Toprol-XL, home doses for now. He is getting a dose of Thorazine 25 mg in the ER to see if it will terminate his intractable hiccups. We will closely monitor him on telemetry. Job ID: [id number]
[2019-08-28 20:10] LABS: Troponin I 0.624 ng/mL (< 0.028)
--- NOTE | 2019-08-28 22:00 | CON ---
DATE OF CONSULTATION: HISTORY OF PRESENT ILLNESS: This is a 54-year-old gentleman who has been hospitalized in the past month twice for small pericardial effusion, atrial fibrillation, hyponatremia. He underwent cardioversion about 6 days ago, and was discharged home on Eliquis. He underwent cardiac catheterization during the last admission for chest pain, was felt to have pericarditis and treated with colchicine. The patient has had hiccups, he states during his last admission and again while he has been at home, and presented to the emergency room with those complaints. CT scan demonstrated a large pericardial effusion and moderate bilateral pleural effusions. Associated with the hiccups, he has had worsening dyspnea and some difficulty lying flat. PAST MEDICAL HISTORY: Significant for rheumatoid arthritis being treated with Plaquenil. He has hypertension. SOCIAL HISTORY: He is a nonsmoker. He is . He is alone today. PHYSICAL EXAMINATION: VITAL SIGNS: He is alert, cooperative gentleman, in no distress. His blood pressure is 125, heart rate is 90 and sinus rhythm. HEENT: He has strong radial pulses bilaterally, and I do not appreciate any neck vein distention at 30 degrees. CARDIAC: Regular rate and rhythm. No murmurs. LUNGS: Clear to auscultation anteriorly. ABDOMEN: Soft, obese, nontender. EXTREMITIES: He has no peripheral edema with palpable femoral and popliteal pulses and no pedal pulses. PLAN: At this time, the patient does have a moderate-sized effusion. We will await the results of his echo and evaluation by Dr. Kasper, and if he is in agreement, we can perform a pericardial window tomorrow for drainage and diagnostic purposes. I have discussed this with the patient who understands and is agreeable to proceed. Job ID: [id number]
[2019-08-28 22:09] VITALS: BMI 30.7
[2019-08-28] MEDS: HYDROcodone/Acetaminophen 5/325 mg Tablet PO PRN (22:32)
[2019-08-28] MEDS: Hydroxychloroquine Sulfate 200 MG TAB PO SCH (22:32)
[2019-08-28] MEDS: Nitroglycerin 2% Ointment 1 INCH/1 GM Packet TOP SCH (22:33)
[2019-08-28] MEDS: Colchicine 0.3 MG TAB PO SCH (23:14)
[2019-08-28] MEDS: Famotidine 20 MG TAB PO SCH (23:14)
[2019-08-29 05:20] LABS: #Lymphocytes 1.6 thou/uL (1.20-3.40); #Neutrophils 6.8 thou/uL (1.40-6.50); %Basophils 0.5 % (0.0-1.0); %Eosinophils 0.5 % (0.0-10.0); %Lymphocytes 16.9 % (21.0-51.0); %Monocytes 10.9 % (0.0-10.0); %Neutrophils 71.3 % (42.0-75.0); Hemoglobin 11.2 g/dL (14.0-18.0); Mean Corpuscular HGB CONC 30.8 g/dL (32.0-36.0); Mean Corpuscular Hemoglobin 26.4 pg (27.0-31.0); Mean Corpuscular Volume 85.7 fL (78.0-98.0); Mean Platelet Volume 7.1 fL (7.4-10.4); Platelet Count 284 thou/uL (130-400); RBC Distribution Width 12.7 % (11.5-14.5); Red Blood Cell (RBC) Count 4.26 mill/uL (4.70-6.10); White Blood Cell (WBC) Count 9.5 thou/uL (4.8-10.8)
[2019-08-29 05:57] LABS: Anion Gap 9 mmol/L (10-20); BUN (Urea Nitrogen) 11 mg/dL (8.4-25.7); Calc. Creatinine Clearance 195 mL/min (70-130); Calcium 8.3 mg/dL (7.8-10.44); Carbon Dioxide 28 mmol/L (22-29); Chloride 104 mmol/L (98-107); Estimated GFR-MDRD Greater than 90; Glucose 105 mg/dL (70-105); Potassium 3.7 mmol/L (3.5-5.1); Sodium 137 mmol/L (136-145)
[2019-08-29] MEDS: Nitroglycerin 2% Ointment 1 INCH/1 GM Packet TOP SCH (06:35)
--- NOTE | 2019-08-29 07:47 | PDOC.HOSPP ---
- Subjective Encounter Date: 08/29/19 Encounter Time: 17:00 Subjective: Patient back from pericardial window. Feeling ok. No N/V currently. No SOB at rest. - Objective Vital Signs & Weight: Vital Signs (12 hours) Temp Pulse Resp BP Pulse Ox 08/29/19 07:44 99.1 F 86 16 122/69 92 L 08/29/19 04:41 98.9 F 85 17 95 08/29/19 01:21 98.0 F 94 17 149/95 H 94 L 08/28/19 22:57 95 08/28/19 21:32 99.6 F 97 20 142/86 H 95 Weight Weight 287 lb Result Diagrams: 08/29/19 04:55 08/29/19 04:55 Hospitalist ROS - Review of Systems Constitutional: denies: fever, chills Respiratory: denies: cough, shortness of breath Cardiovascular: denies: chest pain, palpitations Gastrointestinal: denies: nausea, vomiting - Medication Medications: Active Medications Generic Name Dose Route Start Last Admin Trade Name Freq PRN Reason Stop Dose Admin Hydrocodone Bitart/Acetaminophen 1 tab 08/28/19 17:20 08/28/19 22:32 [place] 5/325 PO 1 tab Q4H PRN Administration Moderate Pain (4-6) Colchicine 0.3 mg 08/28/19 21:00 08/28/19 23:14 Colcrys PO 0.3 mg BID [facility] Administration Diltiazem HCl 30 mg 08/28/19 21:00 08/29/19 06:35 Cardizem PO 30 mg ACHS [facility] Administration Famotidine 20 mg 08/28/19 21:00 08/28/19 23:14 Pepcid PO 20 mg BID [facility] Administration Guaifenesin/Dextromethorphan 15 ml 08/28/19 17:20 08/28/19 22:33 Robitussin Dm PO 15 ml Q4H PRN Administration Cough Hydroxychloroquine Sulfate 200 mg 08/28/19 21:00 08/28/19 22:32 Plaquenil PO 200 mg BID [facility] Administration Nitroglycerin 0.5 inch 08/28/19 22:00 08/29/19 06:35 Nitro-Bid 2% Ointment TOP 0.5 inch Q8HR [facility] Administration - Exam General Appearance: NAD, awake alert ENT: moist mucosa Heart: RRR, no murmur, no gallops, no rubs Respiratory: CTAB, no wheezes, no rales, no ronchi Respiratory - other findings: dressing over GLENN region C/D/I Gastrointestinal: soft, non-tender, non-distended, normal bowel sounds Psychiatric: normal affect, normal behavior, A&O x 3 Hosp A/P (1) Pericardial effusion Code(s): I31.3 - PERICARDIAL EFFUSION (NONINFLAMMATORY) Status: Acute (2) Pericarditis Code(s): I31.9 - DISEASE OF PERICARDIUM, UNSPECIFIED Status: Chronic (3) Paroxysmal atrial fibrillation Code(s): I48.0 - PAROXYSMAL ATRIAL FIBRILLATION Status: Chronic (4) Rheumatoid arthritis Code(s): M06.9 - RHEUMATOID ARTHRITIS, UNSPECIFIED Status: Chronic (5) Scoliosis Status: Chronic (6) HTN (hypertension) Code(s): I10 - ESSENTIAL (PRIMARY) HYPERTENSION Status: Chronic Qualifiers: Hypertension type: essential hypertension Qualified Code(s): I10 - Essential (primary) hypertension - Plan Holding Eliquis for surgery Continuing Hydroxychloroquine, Diltiazem, and Metoprolol. Dr. Kasper and Dr. Foss consulted. Had pericardial window today. Patient not tolerating cochicine or NSAIDs. I spoke with patient's salvage laborer Dr. Abarca and she recommended trying a course of steroids 40mg daily for a few days, then wean off over 2 weeks after symptoms improved. DVT Proph: SCDs while Eliquis held GI Proph: Pepcid
[2019-08-29] MEDS: HYDROcodone/Acetaminophen 5/325 mg Tablet PO PRN ×2 (09:53→20:21)
[2019-08-29] MEDS: Colchicine 0.3 MG TAB PO SCH ×2 (09:54→09:59)
[2019-08-29] MEDS: Famotidine 20 MG TAB PO SCH ×2 (09:55→20:22)
[2019-08-29] MEDS: Hydroxychloroquine Sulfate 200 MG TAB PO SCH ×2 (09:55→20:22)
--- NOTE | 2019-08-29 10:47 | CON ---
DATE OF CONSULTATION: 08/29/2019 REASON FOR CONSULTATION: Pericardial fluid. HISTORY OF PRESENT ILLNESS: Mr. Lester Lizarraga is a 54-year-old gentleman with history of rheumatoid arthritis and pericarditis. He initially presented with a possible STEMI, but he was taken to catheterization lab and found to have no coronary artery disease, but his symptoms were due to pericardial inflammation, pericarditis. The patient was given colchicine, but had severe GI side effects. We tried to give him anti-inflammatories, but his renal function worsened. He went home on reduced dose of colchicine, but had recurrent nausea, vomiting, came back to the hospital mostly with these symptoms. One of the troponins was elevated, the other two are normal. The patient has normal left ventricular function. He has been bothered with atrial fibrillation. Medications; he was on colchicine 0.3 mg twice a day, but even that caused GI side effects. He was given nitroglycerin paste. Other medicines; hydroxychloroquine long-term for the rheumatoid arthritis. Also on Pepcid. REVIEW OF SYSTEMS: CONSTITUTIONAL: No significant weight gain. VISION: No changes. HEARING: No changes. PULMONARY: No difficulty breathing. CARDIAC: No chest pain. GASTROINTESTINAL: Positive for nausea, vomiting. SKIN: No rashes. MEDICATIONS: As outlined above. ALLERGIES: . PHYSICAL EXAMINATION: GENERAL: This is a 54-year-old gentleman, in no distress. VITAL SIGNS: Blood pressure 122/69, pulse 86 and regular. LUNGS: Clear. CARDIAC: Normal S1, normal S2. I do not hear a rub. ABDOMEN: Soft, nontender. EXTREMITIES: Warm, dry. No clubbing. No cyanosis or edema. LABORATORY DATA: As outlined above. IMAGING STUDIES: CT scan of the abdomen and pelvis, apparently also was able to visualize some of the chest and was noted to have a large pericardial effusion, moderate bilateral pleural effusions. ASSESSMENT: 1. Pericardial and pleural effusions, inflammatory. 2. Large pericardial effusion on CT. PLAN: 1. Dr. Foss has been consulted. We will do an echo to confirm the size of the pericardial fluid. He does not appear to be tamponade right now. 2. I would recommend to call the b2b appointment setter to see if any other therapy would be available for the rheumatoid. He cannot tolerate colchicine, cannot tolerate anti-inflammatories, renal function worsened. I will review echocardiogram. Job ID: [id number]
[2019-08-29] MEDS ORDERED: Ketorolac Tromethamine 30 MG/ML VIAL ONE (12:49)
[2019-08-29] MEDS ORDERED: Ondansetron PF 4 MG/2 ML Vial ONE (12:49)
[2019-08-29] MEDS ORDERED: Dexamethasone 20 MG/5 ML VIAL ONE (12:49)
[2019-08-29] MEDS ORDERED: Succinylcholine Chloride 20 MG/ML 10 ml SYRINGE FS ONE (12:49)
[2019-08-29] MEDS ORDERED: PROPOFOL 200 MG/20 ML VIAL ONE (12:49)
[2019-08-29] MEDS ORDERED: methylPREDNISolone Sod Succ 40 MG VIAL IVP SCH (14:30)
[2019-08-29] MEDS ORDERED: Fentanyl 100 MCG/2 ML VIAL ONE (14:51)
[2019-08-29] MEDS ORDERED: Bupivacaine PF 0.5% 30 ML VIAL ONE (15:45)
[2019-08-29] MEDS ORDERED: Promethazine HCl 25 MG/ML VIAL IM PRN (16:08)
[2019-08-29] MEDS ORDERED: Promethazine HCl 25 MG/ML VIAL SLOW IVP PRN (16:08)
[2019-08-29] MEDS ORDERED: Ondansetron HCl/PF 4 MG/2 ML Vial IVP PRN (16:08)
[2019-08-29 16:53] LABS: Fluid, Protein 5.4 g/dL (Not Available)
[2019-08-29 17:16] LABS: RBC Count-Automated (BF) 400004 /cu.mm; WBC/Nucleated-Auto (BF) 4953 uL
[2019-08-29] MEDS ORDERED: Fentanyl 100 MCG/2 ML VIAL SLOW IVP PRN (17:25)
[2019-08-29 18:44] LABS: BF Color Red; Body Fluid Source Pericardial Fluid; Clarity Cloudy/Turbid (Clear); Tube # EDTA
[2019-08-29 18:47] LABS: BF Segmented Neutrophils 42 %; Cell Count Non Hematic 12 %; Eosinophils 2 %; Lymphocytes 44 %
[2019-08-30 05:22] LABS: #Lymphocytes 0.9 thou/uL (1.20-3.40); #Monocytes 0.5 thou/uL (0.11-0.59); %Basophils 0.2 % (0.0-1.0); %Lymphocytes 10.9 % (21.0-51.0); %Monocytes 5.9 % (0.0-10.0); Hemoglobin 11.6 g/dL (14.0-18.0); Mean Corpuscular HGB CONC 30.7 g/dL (32.0-36.0); Mean Corpuscular Hemoglobin 26.4 pg (27.0-31.0); Mean Corpuscular Volume 85.9 fL (78.0-98.0); Mean Platelet Volume 7.3 fL (7.4-10.4); Platelet Count 313 thou/uL (130-400); RBC Distribution Width 12.7 % (11.5-14.5); Red Blood Cell (RBC) Count 4.39 mill/uL (4.70-6.10); White Blood Cell (WBC) Count 8.5 thou/uL (4.8-10.8)
[2019-08-30 05:45] LABS: Anion Gap 11 mmol/L (10-20); BUN (Urea Nitrogen) 11 mg/dL (8.4-25.7); Calc. Creatinine Clearance 190 mL/min (70-130); Calcium 8.3 mg/dL (7.8-10.44); Carbon Dioxide 26 mmol/L (22-29); Chloride 103 mmol/L (98-107); Estimated GFR-MDRD Greater than 90; Glucose 178 mg/dL (70-105); Potassium 4.4 mmol/L (3.5-5.1); Sodium 136 mmol/L (136-145)
--- NOTE | 2019-08-30 07:09 | PDOC.BPN ---
- Brief Progress Note Pt stated feeling better. He was sitting on his bed for the first time this morning. He denied CP, SOB, N/V, and fever. No other complaints were stated at this point.
--- NOTE | 2019-08-30 07:25 | PRG ---
DATE OF SERVICE: 08/30/2019 SUBJECTIVE: The patient had stable vital signs overnight with a heart rate of about 70, good blood pressure. His drain output has been about 40 mL from his pericardial window. He states he feels better than he did in the emergency room and he certainly overall looks better with no further hiccups. Protein on the fluid was 5.4 and otherwise nothing else has been returned. Probably just pericarditis, possibly related to rheumatoid arthritis and recommendation from Rheumatology are pending. Job ID: [id number]
--- NOTE | 2019-08-30 07:57 | PDOC.HOSPP ---
- Subjective Encounter Date: 08/30/19 Encounter Time: 12:30 Subjective: Patient had some SOB last night and put on 3L NC O2. Resolved this AM and back on RA. No complaints currently. - Objective Vital Signs & Weight: Vital Signs (12 hours) Temp Pulse Resp BP Pulse Ox 08/30/19 07:54 97.9 F 77 16 129/75 92 L 08/30/19 03:17 97.7 F 68 20 131/82 94 L 08/29/19 23:32 97.9 F 69 20 115/74 93 L 08/29/19 20:10 97.8 F 80 20 124/78 93 L Weight Weight 287 lb I&O: 08/29/19 08/30/19 08/31/19 06:59 06:59 06:59 Output Total 500 440 700 Balance -500 -440 -700 Result Diagrams: 08/30/19 05:01 08/30/19 05:01 Hospitalist ROS - Review of Systems Constitutional: denies: fever, chills Respiratory: denies: cough, shortness of breath Cardiovascular: denies: chest pain, palpitations Gastrointestinal: denies: nausea, vomiting, abdominal pain - Medication Medications: Active Medications Generic Name Dose Route Start Last Admin Trade Name Freq PRN Reason Stop Dose Admin Hydrocodone Bitart/Acetaminophen 1 tab 08/29/19 17:25 08/29/19 20:21 [place] 5/325 PO 1 tab Q4H PRN Administration Moderate Pain (4-6) Diltiazem HCl 30 mg 08/28/19 21:00 08/29/19 20:22 Cardizem PO 30 mg ACHS MECRY Administration Famotidine 20 mg 08/28/19 21:00 08/29/19 20:22 Pepcid PO 20 mg BID [facility] Administration Guaifenesin/Dextromethorphan 15 ml 08/28/19 17:20 08/28/19 22:33 Robitussin Dm PO 15 ml Q4H PRN Administration Cough Hydroxychloroquine Sulfate 200 mg 08/28/19 21:00 08/29/19 20:22 Plaquenil PO 200 mg BID [facility] Administration Metoprolol Succinate 100 mg 08/29/19 09:00 08/29/19 09:55 Toprol Xl PO 100 mg DAILY [facility] Administration Ondansetron HCl 4 mg 08/28/19 17:20 08/29/19 09:53 Zofran IVP 4 mg Q6H PRN Administration Nausea/Vomiting Temazepam 15 mg 08/28/19 17:20 08/30/19 00:00 Restoril PO 15 mg HS PRN Administration Insomnia - Exam General Appearance: NAD, awake alert ENT: moist mucosa Heart: RRR, no murmur, no gallops, no rubs Heart - other findings: TYRESE drain in place Respiratory: CTAB, no wheezes, no rales, no ronchi Gastrointestinal: soft, non-tender, non-distended, normal bowel sounds Psychiatric: normal affect, normal behavior, A&O x 3 Hosp A/P (1) Acute respiratory failure with hypoxia Code(s): J96.01 - ACUTE RESPIRATORY FAILURE WITH HYPOXIA Status: Acute (2) Pericardial effusion Code(s): I31.3 - PERICARDIAL EFFUSION (NONINFLAMMATORY) Status: Acute (3) Pericarditis Code(s): I31.9 - DISEASE OF PERICARDIUM, UNSPECIFIED Status: Chronic (4) Paroxysmal atrial fibrillation Code(s): I48.0 - PAROXYSMAL ATRIAL FIBRILLATION Status: Chronic (5) Rheumatoid arthritis Code(s): M06.9 - RHEUMATOID ARTHRITIS, UNSPECIFIED Status: Chronic (6) Scoliosis Status: Chronic (7) HTN (hypertension) Code(s): I10 - ESSENTIAL (PRIMARY) HYPERTENSION Status: Chronic Qualifiers: Hypertension type: essential hypertension Qualified Code(s): I10 - Essential (primary) hypertension - Plan Holding Eliquis for surgery, restart when ok with surgery and cards Continuing Hydroxychloroquine, Diltiazem, and Metoprolol. Dr. Kasper and Dr. Foss consulted. Had pericardial window yesterday, 40mL out drain overnight. Requiring 3L NC overnight, uncertain reason for decompensation. Patient not tolerating cochicine or NSAIDs. I spoke with patient's hvac project engineer Dr. Abarca and she recommended trying a course of steroids 40mg daily for a few days, then wean off over 2 weeks after symptoms improved. DVT Proph: SCDs while Eliquis held GI Proph: Pepcid
[2019-08-30] MEDS: HYDROcodone/Acetaminophen 5/325 mg Tablet PO PRN ×4 (08:12→22:35)
[2019-08-30] MEDS: predniSONE 20 MG TAB PO SCH (08:13)
[2019-08-30] MEDS: Hydroxychloroquine Sulfate 200 MG TAB PO SCH ×2 (08:13→22:59)
[2019-08-30] MEDS: Famotidine 20 MG TAB PO SCH ×2 (08:14→22:35)
--- NOTE | 2019-08-30 09:14 | OP ---
DATE OF PROCEDURE: 08/29/2019 PREOPERATIVE DIAGNOSIS: Pericardial effusion, moderate. POSTOPERATIVE DIAGNOSIS: Pericardial effusion, moderate. FINDINGS: The patient had 450 mL of thin bloody pericardial fluid with granular appearance to the surface of the right ventricle, consistent with pericarditis. DESCRIPTION OF PROCEDURE: After adequate anesthesia had been obtained, an incision was made over the xiphoid process, and the left half of it was excised to allow access to the diaphragmatic attachments to the sternum, which were taken down bluntly and with the Bovie. Following this, the heart was palpated, and using the Bovie, the tissue was cleared off the pericardium and the pericardium was then entered just at the diaphragm. Fluid was then removed and sent for studies. Multiple attempts to obtain a biopsy of the pericardium were unsuccessful due to the patient's large body habitus and inability to access this area well enough to graft the pericardium and excise it. Finally, a #19 Manas drain was introduced through a separate stab incision into the pericardial well and the fascia was then closed with [id number] 0 Vicryl sutures and the subcutaneous tissue with [id number] [id number] Vicryl sutures. Skin was closed. The patient is to be taken to the recovery room. Job ID: [id number]
[2019-08-30] MEDS: Temazepam 15 MG CAP PO PRN ×2 (22:34)
[2019-08-31] MEDS: HYDROcodone/Acetaminophen 5/325 mg Tablet PO PRN ×2 (05:04→09:47)
--- NOTE | 2019-08-31 07:20 | PDOC.HOSPP ---
- Subjective Encounter Date: 08/31/19 Encounter Time: 11:00 Subjective: Patient with improved SOB. Ambulating well. Drain pulled. - Objective Vital Signs & Weight: Vital Signs (12 hours) Temp Pulse Resp BP Pulse Ox 08/31/19 04:05 97.6 F 61 18 138/91 H 97 08/31/19 00:34 97.5 F L 71 18 130/82 94 L 08/30/19 22:35 92 L Weight Weight 287 lb I&O: 08/30/19 08/31/19 09/01/19 06:59 06:59 06:59 Intake Total 720 Output Total 440 4520 Balance -440 -6412 Result Diagrams: 08/30/19 05:01 08/30/19 05:01 Hospitalist ROS - Review of Systems Constitutional: denies: fever, chills Respiratory: denies: cough, shortness of breath Cardiovascular: denies: chest pain, palpitations Gastrointestinal: denies: nausea, vomiting, abdominal pain - Medication Medications: Active Medications Generic Name Dose Route Start Last Admin Trade Name Freq PRN Reason Stop Dose Admin Hydrocodone Bitart/Acetaminophen 1 tab 08/29/19 17:25 08/30/19 13:59 [place] 5/325 PO 1 tab Q4H PRN Administration Moderate Pain (4-6) Hydrocodone Bitart/Acetaminophen 2 tab 08/29/19 17:25 08/31/19 05:04 [place] 5/325 PO 2 tab Q4H PRN Administration Severe Pain (7-10) Diltiazem HCl 30 mg 08/28/19 21:00 08/30/19 22:35 Cardizem PO 30 mg ACHS [facility] Administration Famotidine 20 mg 08/28/19 21:00 08/30/19 22:35 Pepcid PO 20 mg BID [facility] Administration Guaifenesin/Dextromethorphan 15 ml 08/28/19 17:20 08/28/19 22:33 Robitussin Dm PO 15 ml Q4H PRN Administration Cough Hydroxychloroquine Sulfate 200 mg 08/28/19 21:00 08/30/19 22:59 Plaquenil PO 200 mg BID [facility] Administration Metoprolol Succinate 100 mg 08/29/19 09:00 08/30/19 08:14 Toprol Xl PO 100 mg DAILY [facility] Administration Ondansetron HCl 4 mg 08/28/19 17:20 08/29/19 09:53 Zofran IVP 4 mg Q6H PRN Administration Nausea/Vomiting Prednisone 40 mg 08/30/19 08:00 08/30/19 08:13 Prednisone PO 40 mg QAM-WM [facility] Administration Senna/Docusate Sodium 2 tab 08/28/19 17:20 08/30/19 08:21 Senokot S PO 2 tab BID PRN Administration Constipation Temazepam 15 mg 08/28/19 17:20 08/30/19 22:34 Restoril PO 15 mg HS PRN Administration Insomnia - Exam General Appearance: NAD, awake alert ENT: moist mucosa Heart: RRR, no murmur, no gallops, no rubs Respiratory: CTAB, no wheezes, no rales, no ronchi Gastrointestinal: soft, non-tender, non-distended, normal bowel sounds Psychiatric: normal affect, normal behavior, A&O x 3 Hosp A/P (1) Acute respiratory failure with hypoxia Code(s): J96.01 - ACUTE RESPIRATORY FAILURE WITH HYPOXIA Status: Acute (2) Pericardial effusion Code(s): I31.3 - PERICARDIAL EFFUSION (NONINFLAMMATORY) Status: Acute (3) Pericarditis Code(s): I31.9 - DISEASE OF PERICARDIUM, UNSPECIFIED Status: Chronic (4) Paroxysmal atrial fibrillation Code(s): I48.0 - PAROXYSMAL ATRIAL FIBRILLATION Status: Chronic (5) Rheumatoid arthritis Code(s): M06.9 - RHEUMATOID ARTHRITIS, UNSPECIFIED Status: Chronic (6) Scoliosis Status: Chronic (7) HTN (hypertension) Code(s): I10 - ESSENTIAL (PRIMARY) HYPERTENSION Status: Chronic Qualifiers: Hypertension type: essential hypertension Qualified Code(s): I10 - Essential (primary) hypertension - Plan Holding Eliquis for surgery, restart when ok with surgery and cards Continuing Hydroxychloroquine, Diltiazem, and Metoprolol. Dr. Kasper and Dr. Foss consulted. Had pericardial window 08/29/2019. Patient needing some O2 overnight, off during the day without any SOB. Patient not tolerating cochicine or NSAIDs. I spoke with patient's rn ostomy Dr. Abarca and she recommended trying a course of steroids 40mg daily for a few days, then wean off over 2 weeks after symptoms improved. Will d/c home when ok with cardiology and surgery DVT Proph: SCDs while Maday held GI Proph: Elana
[2019-08-31] MEDS: Hydroxychloroquine Sulfate 200 MG TAB PO SCH (09:47)
[2019-08-31] MEDS: predniSONE 20 MG TAB PO SCH (09:47)
[2019-08-31] MEDS: Famotidine 20 MG TAB PO SCH (09:47)
[2019-08-31 11:23] VITALS: BP 143/86; TEMP 97.4
--- NOTE | 2019-09-01 11:03 | DIS ---
DATE OF ADMISSION: 08/29/2019 DATE OF DISCHARGE: 08/31/2019 PRIMARY CARE PHYSICIAN: Terrence Nazario. REASON FOR ADMISSION: Severe orthopnea and chest pain. DISCHARGE DIAGNOSES: 1. Pericarditis. 2. Bloody pericardial effusion. 3. Rheumatoid arthritis. 4. Paroxysmal atrial fibrillation. 5. Scoliosis. 6. Hypertension. PROCEDURES: 1. CT of the abdomen and pelvis with contrast showing no evidence of bowel obstruction or inflammation. There is a large pericardial effusion and moderate bilateral pleural effusions. 2. Echocardiogram showing ejection fraction of 55% to 60% along with a [id number] pericardial effusion without evidence of tamponade. 3. Pericardial window with 450 mL of thin bloody pericardial fluid drained and granular appearance to the surface of the right ventricle consistent with pericarditis. CONSULTATIONS: 1. Cardiology, Dr. Kasper. 2. CT surgery, Dr. Foss. SUMMARY OF HOSPITAL COURSE: This is a 54-year-old male with a history of rheumatoid arthritis and pericarditis seen by Dr. Kasper with previous admissions showing small pericardial effusion. He was tried on nonsteroidal anti-inflammatories, which caused renal failure so he had to be stopped on those. He was then tried on colchicine with recent admission for nausea and vomiting secondary to colchicine. The dose was decreased. However, he continued to have nausea and vomiting at home along with worsening of his orthopnea and chest pain, so he re-presented to the hospital. The colchicine was completely discontinued with a resolution of all of his GI symptoms. He did have enlarging of the pericardial effusion on his imaging this time, so Dr. Foss was consulted. He did a pericardial window with drainage of a large amount of fluid. The patient had resolution of his orthopnea and shortness of breath. He did need some oxygen at night for a couple of nights in the hospital, but then was able to go to room air. I did talk with the patient's hop strainer, Dr. Thibodeaux and she recommended trying a course of steroids since he cannot take the other two medications and then after seeing improvement to wean that over a couple of weeks. The day of discharge the patient had his drain pulled. He was ambulating well. He was breathing well on room air and was eager to go home. DISCHARGE MANAGEMENT: Discharge home. ACTIVITY: As tolerated. DIET: Healthy-heart diet. FOLLOWUP: Follow up with Dr. Foss as indicated, with Dr. Kasper in 2 weeks, and with Dr. Nazario on September 06 at 10:30 a.m. DISCHARGE MEDICATIONS: 1. Prednisone 10 mg tablets, 40 mg for 3 days, followed by 30 mg daily for 5 days, followed by 20 mg daily for 5 days, followed by 10 mg daily for 5 days, 42 tablets dispensed. 2. Vitamin D3 50,000 units p.o. weekly. 3. Cardizem 30 mg a.c. and at bedtime. 4. [place] 10/325 one tablet twice a day. 5. Hydroxychloroquine 200 mg twice a day. 6. Metoprolol succinate 100 mg daily. 7. Temazepam 15 mg at night as needed. The patient is to hold his Eliquis until seen by Dr. Kasper in the clinic. Job ID: [id number]
[2019-09-01 11:42] LABS: ANA Symphony (Qualitative) Negative (Negative); ANA Symphony (Quantitative) 0.2 Ratio (< 0.7 Negative); CCP IgG Antibody 2.7 EliAU/mL (<7 Negative); EliA RAS New Method **** NEW METHOD ****; Rheumatoid Factor IgA Antibody 5.4 IU/mL (<14 Negative); Rheumatoid Factor IgM Antibody 1.2 IU/mL (<3.5 Negative); dsDNA IgG Antibody 1.2 IU/mL (<10 Negative)
== END 2019-08-31 14:48 | disposition home or self-care (01) | DRG 270 ==
LOC: ERS 15:07 → 2SE 16:46 → OBSVTOIN 08-29 18:55
PROVIDERS: ADMIT Internal Medicine; ATTEND Internal Medicine
PROC: 0W9D00Z Drainage of Pericardial Cavity with Drainage Device, Open Approach (ICD-10-PCS; principal; 2019-08-29)
DX: I31.9 Disease of pericardium, unspecified (principal); J96.01 Acute respiratory failure with hypoxia; J90 Pleural effusion, not elsewhere classified; I31.3 Pericardial effusion (noninflammatory); M06.9 Rheumatoid arthritis, unspecified; I48.0 Paroxysmal atrial fibrillation; M41.9 Scoliosis, unspecified; I10 Essential (primary) hypertension; Z20.828 Contact with and (suspected) exposure to other viral communicable diseases; Z87.891 Personal history of nicotine dependence; Z79.899 Other long term (current) drug therapy; Z79.01 Long term (current) use of anticoagulants
CPT/HCPCS: 36415; 71045; 74177; 80048; 80053; 81003; 81015; 82150; 83520; 83690; 83880; 84157; 84484; 85025; 85060; 86038; 86200; 86225; 87070; 87205; 88112; 88305; 89051; 93005; 93306; 94760; 96365; 96366; 96375; J0690; J1100; J1200; J1885; J2405; J2704; J2765; J2920; J3010; J7512; Q0161; Q9967; S0020; U0002

== ENCOUNTER 2021-01-10 09:46 | Outpatient (CLI) | payer MEDICARE | END 2021-01-10 09:47 | disposition home or self-care (01) | LOC: BICRAD 09:46 | PROVIDERS: ATTEND Podiatrist | DX: M79.89 Other specified soft tissue disorders (principal); M79.672 Pain in left foot; M25.572 Pain in left ankle and joints of left foot; R60.0 Localized edema; M77.9 Enthesopathy, unspecified; Z87.828 Personal history of other (healed) physical injury and trauma; M10.9 Gout, unspecified | CPT/HCPCS: 84550; 85027 ==